=== PATIENT | male | born 1950 | race Caucasian/White ===

== ENCOUNTER 2017-07-12 09:24 | Inpatient (IN) | payer OTHER, MEDICARE ==
[2017-07-12] VITALS (23 sets, daily range): BP systolic 114–180; BP diastolic 77–113; PULSE 85–115; RESP 10–30; TEMP 97.9–98.7; O2SAT 55–98
[~2017-07-12] VITALS: Ht 185.4 cm; Wt 141.0 kg
[~2017-07-12 09:24] MED LIST: ATOR20TA42 PO; DILT60TA PO; ECASA PO; FURO1TAB93 PO; KCL20 PO; LISI20 PO
[2017-07-12] MEDS ORDERED: APIX5TAB PO (09:39)
[2017-07-12] MEDS ORDERED: CARV12.52 PO (09:39)
[2017-07-12] MEDS ORDERED: ATOR20TA15 PO (09:39)
[2017-07-12] MEDS ORDERED: POTA-163 PO (09:39)
[2017-07-12] MEDS ORDERED: FURO40TA PO (09:39)
[2017-07-12] MEDS ORDERED: AMLO5TAB2 PO (09:40)
[2017-07-12] MEDS ORDERED: FUROSEMIDE 40 MG/4 ML VIAL IV PUSH ONE (10:30)
[2017-07-12 10:44] LABS: AUTOMATED NEUTROPHIL # 6.2 TH/MM3 (1.8-7.7); BASOPHIL # 0.1 TH/MM3 (0-0.2); BASOPHIL % 0.6 % (0.0-2.0); EOSINOPHIL % 0.1 % (0.0-4.0); HEMATOCRIT 57.8 % (39.0-51.0); HEMOGLOBIN 18.3 GM/DL (13.0-17.0); LYMPH % 10.7 % (9.0-44.0); LYMPHOCYTE # 0.9 TH/MM3 (1.0-4.8); MEAN CORPUSCULAR HEMOGLOBIN 28.8 PG (27.0-34.0); MEAN CORPUSCULAR HGB CONC 31.6 % (32.0-36.0); MEAN PLATELET VOLUME 9.3 FL (7.0-11.0); MONO % 12.9 % (0.0-8.0); NEUT % 75.7 % (16.0-70.0); PLATELET COUNT 147 TH/MM3 (150-450); RED BLOOD COUNT 6.35 MIL/MM3 (4.50-5.90); RED CELL DISTRIBUTION WIDTH 20.7 % (11.6-17.2); WHITE BLOOD COUNT 8.2 TH/MM3 (4.0-11.0)
--- NOTE | 2017-07-12 10:58 | PD ---
HPI Chief Complaint: Edema Time Seen by Provider: 10:10 Travel History International Travel<30 days: No Contact w/Intl Traveler<30days: No Traveled to known affect area: No History of Present Illness HPI This patient complains of shortness of breath. He is chronically short of breath every single day. This is been going on for many months. He came in today out of frustration. He is not having chest pain or fever. He has chronic leg swelling. He reports diuretic use. He denies alcohol abuse. He is a smoker. No alleviating factors. No exacerbating factors. Symptoms severity is moderate PFSH Past Medical History Congestive Heart Failure: Yes Hypertension: Yes Tetanus Vaccination: > 5 Years Influenza Vaccination: Yes Past Surgical History Surgical History: No Previous Surgery Other Surgery: Yes (FACIAL TUMOR REMOVED) Social History Alcohol Use: Yes (occas) Tobacco Use: Yes (06/28 PPD) Substance Use: No Allergies-Medications (Allergen,Severity, Reaction): Coded Allergies: No Known Allergies (Verified Adverse Reaction, Unknown, 07/12/17) Reported Meds & Prescriptions Reported Meds & Active Scripts Active Reported Amlodipine (Amlodipine Besylate) 5 Mg Tab 5 Mg PO DAILY Furosemide 40 Mg Tab 40 Mg PO BID Carvedilol 12.5 Mg Tab 12.5 Mg PO BID Potassium Chloride ER (Potassium Chloride) 20 Meq Tab 20 Meq PO DAILY Atorvastatin (Atorvastatin Calcium) 20 Mg Tab 20 Mg PO HS Eliquis (Apixaban) 5 Mg Tab 5 Mg PO BID Review of Systems General / Constitutional: No: Fever Eyes: No: Visual changes HENT: No: Headaches Cardiovascular: Positive: Edema, No: Chest Pain or Discomfort Respiratory: Positive: Shortness of Breath Gastrointestinal: No: Abdominal Pain Genitourinary: No: Dysuria Musculoskeletal: Positive: Edema, No: Pain Skin: No Rash Neurologic: No: Weakness Psychiatric: No: Depression Endocrine: No: Polydipsia Hematologic/Lymphatic: No: Easy Bruising Physical Exam Narrative GENERAL: Well-nourished, well-developed patient who is short of breath . SKIN: Focused skin assessment reveals no rash and nodules. Skin is Warm and dry. HEAD: Atraumatic. Normocephalic. EYES: Pupils equal and round. No scleral icterus. No injection or drainage. ENT: No nasal bleeding or discharge. Mucous membranes pink and moist. NECK: Trachea midline. No JVD. CARDIOVASCULAR: Irregularly irregular rhythm. No murmur appreciated. RESPIRATORY: No accessory muscle use. Clear to auscultation. Breath sounds equal bilaterally. GASTROINTESTINAL: Abdomen soft, non-tender, nondistended. Hepatic and splenic margins not palpable. MUSCULOSKELETAL: No obvious deformities. No clubbing. No cyanosis. Symmetric pitting edema the feet ankles and lower legs up to the knee. He has hyperpigmentation stasis and thickening of skin suggesting chronicity. The right lower leg there is a open sore with some scant honey crusting drainage . NEUROLOGICAL: Awake and alert. No obvious cranial nerve deficits. Motor grossly within normal limits. Normal speech. PSYCHIATRIC: Appropriate mood and affect; insight and judgment normal. Data Data Last Documented VS Vital Signs Date Time Temp Pulse Resp B/P (MAP) Pulse Ox O2 Delivery O2 Flow Rate FiO2 07/12/17 14:04 87 16 180/113 (135) 97 BiPAP 07/12/17 13:50 50 07/12/17 13:40 8.00 07/12/17 09:26 98.7 Orders Orders Electrocardiogram (07/12/17 ) Iv Access Insert/Monitor (07/12/17 10:20) Complete Blood Count With Diff (07/12/17 10:20) Comprehensive Metabolic Panel (07/12/17 10:20) Troponin I (07/12/17 10:20) Ckmb (Isoenzyme) Profile (07/12/17 10:20) B-Type Natriuretic Peptide (07/12/17 10:20) Chest, Single Ap (07/12/17 ) Prothrombin Time / Inr (Pt) (07/12/17 10:20) Act Partial Throm Time (Ptt) (07/12/17 10:20) Towboat Operator / Telemetry SANNA.Q8H (07/12/17 10:20) Furosemide Inj (Lasix Inj) (07/12/17 10:30) Oxygen Administration (07/12/17 10:20) Albuterol-Ipratropium Neb (Duoneb Neb) (07/12/17 12:45) Albuterol-Ipratropium Neb (Duoneb Neb) (07/12/17 12:45) Arterial Blood Gas (Abg) (07/12/17 ) Resp Bipap / Cpap Non Invas Vt (07/12/17 ) Admit To Inpatient (07/12/17 ) Code Status (07/12/17 14:21) Vital Signs (Adult) SANNA.Q1H (07/12/17 14:21) Activity Bed Rest (07/12/17 14:21) Elevate Head Of Bed (07/12/17 14:21) Neuro Checks . ORDERED (07/12/17 14:21) Famotidine Inj (Pepcid Inj) (07/12/17 14:30) Albuterol-Ipratropium Neb (Duoneb Neb) (07/12/17 16:00) Albuterol-Ipratropium Neb (Duoneb Neb) (07/12/17 14:30) Complete Blood Count With Diff (07/13/17 04:00) Basic Metabolic Panel (Bmp) (07/13/17 04:00) Magnesium (Mg) (07/13/17 04:00) Phosphorus (Po4) (07/13/17 04:00) Towboat Operator / Telemetry SANNA.Q8H (07/12/17 14:21) Scd Bilateral/Knee High SANNA.BID (07/12/17 14:21) ^ Initiate Protocol (07/12/17 14:21) Instruction (07/12/17 14:21) [facility] Nursing Information (07/12/17 14:30) Chlorhexidine 2% Cloth (Chlorhexidine 2% (07/13/17 04:00) Chlorhexidine 2% Cloth (Chlorhexidine 2% (07/12/17 14:30) [facility]sa Pcr Surveillance (07/12/17 14:21) Docusate Sodium-Senna (Heavenly-Colace) (07/12/17 21:00) Magnesium Hydroxide Liq (Milk Of Magnesi (07/12/17 14:30) Sennosides (Senokot) (07/12/17 14:30) Bisacodyl Supp (Dulcolax Supp) (07/12/17 14:30) Methylprednisolone So Succ Inj (Solumedr (07/12/17 14:30) Lactulose Liq (Lactulose Liq) (07/12/17 14:30) Inpatient Certification (07/12/17 ) Methylprednisolone So Succ Inj (Solumedr (07/12/17 18:00) Admit Order (Ed Use Only) (07/12/17 14:25) Labs Laboratory Tests Test 07/12/17 10:15 07/12/17 10:45 07/12/17 11:45 07/12/17 13:30 White Blood Count 8.2 TH/MM3 Red Blood Count 6.35 MIL/MM3 Hemoglobin 18.3 GM/DL Hematocrit 57.8 % Mean Corpuscular Volume 91.0 FL Mean Corpuscular Hemoglobin 28.8 PG Mean Corpuscular Hemoglobin Concent 31.6 % Red Cell Distribution Width 20.7 % Platelet Count 147 TH/MM3 Mean Platelet Volume 9.3 FL Neutrophils (%) (Auto) 75.7 % Lymphocytes (%) (Auto) 10.7 % Monocytes (%) (Auto) 12.9 % Eosinophils (%) (Auto) 0.1 % Basophils (%) (Auto) 0.6 % Neutrophils # (Auto) 6.2 TH/MM3 Lymphocytes # (Auto) 0.9 TH/MM3 Monocytes # (Auto) 1.0 TH/MM3 Eosinophils # (Auto) 0.0 TH/MM3 Basophils # (Auto) 0.1 TH/MM3 CBC Comment DIFF FINAL Differential Comment Prothrombin Time 14.5 SEC Prothromb Time International Ratio 1.4 RATIO Activated Partial Thromboplast Time 28.5 SEC Blood Urea Nitrogen 26 MG/DL Creatinine 1.26 MG/DL Random Glucose 96 MG/DL Total Protein 6.9 GM/DL Albumin 3.1 GM/DL Calcium Level 8.6 MG/DL Alkaline Phosphatase 76 U/L Aspartate Amino Transf (AST/SGOT) 25 U/L Alanine Aminotransferase (ALT/SGPT) 25 U/L Total Bilirubin 3.1 MG/DL Sodium Level 137 MEQ/L Potassium Level 3.9 MEQ/L Chloride Level 96 MEQ/L Carbon Dioxide Level 35.7 MEQ/L Anion Gap 5 MEQ/L Estimat Glomerular Filtration Rate 57 ML/MIN Total Creatine Kinase 47 U/L Troponin I 0.08 NG/ML B-Type Natriuretic Peptide 332 PG/ML Blood Gas Puncture Site RT RADIAL Blood Gas Patient Temperature 98.6 Blood Gas HCO3 39 mmol/L Blood Gas Base Excess 12.1 mmol/L Blood Gas Oxygen Saturation 47 % Arterial Blood pH 7.30 Arterial Blood Partial Pressure CO2 81 mmHg Arterial Blood Partial Pressure O2 30 mmHG Arterial Blood Oxygen Content 12.3 Vol % Arterial Blood Carboxyhemoglobin 3.7 % Arterial Blood Methemoglobin 0.5 % Blood Gas Hemoglobin 18.7 G/DL Oxygen Delivery Device ROOM AIR Blood Gas Inspired Oxygen 21 % [facility] Medical Decision Making Medical Screen Exam Complete: Yes Emergency Medical Condition: Yes Medical Record Reviewed: Yes Differential Diagnosis CHF, pneumonia, COPD, bronchitis Narrative Course I have reviewed the patient's electronic medical record. IV placed I gave him 60 mg IV Lasix CBC is normal Metabolic profile shows increased CO2 CK is normal Troponin is 0.08 Bnp is 332 I reviewed his chest x-ray which does not show significant pulmonary edema or effusions I reviewed his EKG which shows A. fib at a rate of [address] elevation ABG is significantly abnormal. He is 58% on room air, profoundly hypoxemic On BiPAP he has sat of 100 Will need to have him blow off the CO2 on BiPAP Will need an ABG and an hour This may be partly due to COPD. He is congested and wheezy. I gave him multiple nebulizers and IV Solu-Medrol Patient has a hypoxemic respiratory failure, partly chronic. He does have a chronic respiratory acidosis on ABG I reviewed with order entry technician who will hospitalize Critical Care Narrative Aggregate critical care time was 40 minutes. Time to perform other separately billable procedures was not included in the critical care time. My time did not include minutes spent treating any other patients simultaneously or on activities that did not directly contribute to the patient's treatment. The services I provided to this patient were to treat and/or prevent clinically significant deterioration that could result in: Hypoxemic brain injury, cardiopulmonary arrest, cardiac arrhythmia I provided critical care services requiring my management, as noted below: Chart data review, documentation time, medication orders and management, vital sign assessments/reviewing monitor data, ordering and reviewing lab tests, ordering and interpreting/reviewing x-rays and diagnostic studies, care of the patient and discussion of the patient with the admitting physicians. Diagnosis Primary Impression: Acute hypoxemic respiratory failure Additional Impression: Cardiomyopathy Qualified Codes: I42.0 - Dilated cardiomyopathy Admitting Information Admitting Physician Requests: Parrish Jarquin MD Jul 12, 2017 10:58
--- NOTE | 2017-07-12 11:12 | RADRPT ---
EXAM DATE/TIME: 07/12/2017 10:34 [facility] COMPARISON: CHEST PA & LAT, February 10, 2016, 17:26. INDICATIONS : Short of breath. MEDICAL HISTORY : Hypertension. atrial fibrillation SURGICAL HISTORY : cardiac catherization ENCOUNTER: Initial ACUITY: 1 day PAIN SCORE: 0/10 LOCATION: Bilateral chest FINDINGS: A single view of the chest demonstrates the lungs to be symmetrically aerated without evidence of mas s, infiltrate or effusion. The cardiomediastinal contours reveal atherosclerotic changes of the aort a with left ventricular cardiomegaly.. Osseous structures are intact. CONCLUSION: No acute disease. Stable chest with compensated atherosclerotic cardiovascular disease left ventricu lar cardiomegaly. Danny Jaramillo MD on July 12, 2017 at 11:09 Board Certified Radiologist. This report was verified electronically.
[2017-07-12 11:19] LABS: INTERNATIONAL NORMALIZED RATIO 1.4 RATIO; PROTHROMBIN TIME - PATIENT 14.5 SEC (9.8-11.6)
[2017-07-12 12:13] LABS: ALBUMIN 3.1 GM/DL (3.4-5.0); BICARBONATE 35.7 MEQ/L (21.0-32.0); BLOOD UREA NITROGEN 26 MG/DL (7-18); CALCIUM 8.6 MG/DL (8.5-10.1); CHLORIDE 96 MEQ/L (98-107); CREATININE 1.26 MG/DL (0.60-1.30); GLOMERULAR FILTRATION RATE 57 ML/MIN (>89); GLUCOSE,RANDOM 96 MG/DL (74-106); SODIUM (NA) 137 MEQ/L (136-145)
[2017-07-12 12:14] LABS: ALT (GPT) 25 U/L (12-78); AST (GOT) 25 U/L (15-37)
[2017-07-12 12:18] LABS: ALKALINE PHOSPHATASE 76 U/L (45-117); TOTAL BILIRUBIN ADULT 3.1 MG/DL (0.2-1.0); TOTAL PROTEIN 6.9 GM/DL (6.4-8.2); TROPONIN I 0.08 NG/ML (0.02-0.05)
[2017-07-12] MEDS ORDERED: RESP: ALBUTEROL 2.5 MG/IPRATROPIUM 0.5 MG NEB (SCH) NEB ONE ×2 (12:45)
[2017-07-12] MEDS ORDERED: MAGNESIUM HYDROXIDE SUSP 30 ML CUP PO PRN (14:30)
[2017-07-12] MEDS ORDERED: BISACODYL 10 MG SUPP RECTAL PRN (14:30)
[2017-07-12] MEDS ORDERED: MISCELLANEOUS NURSING INFORMATION XX SCH (14:30)
[2017-07-12] MEDS ORDERED: LACTULOSE SYRUP 20 GM/30 ML CUP PO PRN (14:30)
[2017-07-12] MEDS ORDERED: methylPREDNISolone SOD SUCC 125 MG/2 ML VIAL IV PUSH ONE (14:30)
[2017-07-12] MEDS ORDERED: SENNOSIDES 8.6 MG TAB PO PRN (14:30)
[2017-07-12] MEDS ORDERED: CHLORHEXIDINE GLUCONATE 2 % 1 PACK (2 CLOTHS) TOP PRN (14:30)
[2017-07-12] MEDS: amLODIPine BESYLATE 5 MG TAB PO SCH (14:30)
[2017-07-12] MEDS ORDERED: RESP: ALBUTEROL 2.5 MG/IPRATROPIUM 0.5 MG NEB (PRN) INH (14:30)
[2017-07-12] MEDS: CARVEDILOL 12.5 MG TAB PO SCH ×2 (14:30→20:15)
[2017-07-12] MEDS: FAMOTIDINE 20 MG/2 ML VIAL IV PUSH SCH ×2 (14:45→20:16)
[2017-07-12] MEDS ORDERED: GLUCAGON 1 MG/ML VIAL OTHER PRN (15:30)
[2017-07-12] MEDS ORDERED: DEXTROSE 50% IN WATER 50 ML VIAL(D50) IV PUSH PRN (15:30)
[2017-07-12] MEDS: LEVOFLOXACIN 750 MG PREMIX INJ 150 ML IV SCH (16:00)
[2017-07-12] MEDS: RESP: ALBUTEROL 2.5 MG/IPRATROPIUM 0.5 MG NEB (SCH) INH ×3 (16:00→23:39)
[2017-07-12] MEDS: INSULIN NovoLIN REGULAR SUPPLEMENTAL SCALE SQ SCH ×3 (16:00→23:44)
--- NOTE | 2017-07-12 16:07 | MH ---
cc: JASBIR JAFFE M.D. DATE OF ADMISSION 07/12/2017 DATE OF 1950 HISTORY OF THE PRESENT ILLNESS The patient is a 67-year-old male with past medical history of morbid obesity, obstructive sleep apnea, chronic atrial fibrillation on Eliquis, cardiomyopathy with EF of 25-30%, active smoker who presented to [facility] ED with a 2 months history of progressive worsening shortness of breath associated with edema of lower extremities. He denies any associated symptoms of chest pain, cough, fever, chills or any constitutional symptoms. In addition he denies any nausea, vomiting or abdominal pain. On arrival to the ER he was in respiratory distress and was subsequently placed on BiPAP. He had initial ABG on room air which showed severe hypoxemic and hypercapnic respiratory failure. A repeat ABG on BiPap 15/8 with 50% FIO2 showed a pH of 7.26, CO2 89, pAO2 77, bicarb 38 and sats of 89%. When seen in the ED the patient is awake, responds to questions appropriately. IMAGING A chest x-ray showed no acute disease, cardiomegaly noted. LABORATORY DATA His laboratory data significant for mild elevation of BNP at 332 with a troponin of 0.08. In the ED he was given Lasix 60 mg IV push, bronchodilator treatment and Solu-Medrol 125 mg IV x1. PAST MEDICAL HISTORY Significant for: 1. Atrial fibrillation. 2. Cardiomyopathy. 3. Obstructive sleep apnea. 4. Morbid obesity. 5. Hypertension. PAST SURGICAL HISTORY Previous facial tumor removed. SOCIAL HISTORY Occasional drinker. Active smoker. He smokes 10 cigarettes every 2 days and has been a smoker for over 40 years. ALLERGIES NO KNOWN DRUG ALLERGIES. MEDICATIONS Reported medications: 1. Eliquis. 2. Atorvastatin. 3. Coreg. 4. Lasix. 5. Amlodipine. FAMILY HISTORY Noncontributory to current present illness. REVIEW OF SYSTEMS As per HPI. The rest of review of symptoms unremarkable. PHYSICAL EXAMINATION GENERAL: A 67-year-old male sitting up in bed in mild respiratory distress on a BiPap. VITAL SIGNS: Temperature 98.7, pulse of 93, blood pressure 125/83, saturation 91-95% on BiPap. HEENT: Atraumatic, normocephalic. Pupils equal, round, reactive to light and accommodation. Extraocular muscles intact. Conjunctiva pink. Nonicteric sclerae. Oral mucosa within normal. NECK: Supple. No JVD, adenopathy or thyromegaly. Trachea midline. CARDIOVASCULAR: Tachycardiac, irregularly irregular, normal S1-S2. No murmurs, rubs or gallops noted. LUNGS: Pulmonary exam bilateral equal air entry. Overall diminished. ABDOMEN: Soft, obese, nontender, no distension. Positive bowel sounds. EXTREMITIES: No cyanosis, clubbing, 2-3+ edema. NEUROLOGIC: No focal sensory deficit. LABORATORY DATA WBC 8.2, hemoglobin 18, hematocrit 57, platelet count 147. Sodium 137, potassium 3.9, chloride 96, CO2 35, BUN 26, creatinine 1.26, glucose 96, total bilirubin 3.1, AST of 25, ALT 25, alk phos 76. Troponin 0.08. BNP 332. Albumin 3.1. INR 1.4, PT 14.5, PTT 28.5. ABG on a BiPap showed a pH of 7.26, CO2 89, pAO2 77, bicarb 38, sats of 89%. The chest x-ray showed no acute disease. EKG showed atrial fibrillation with a rate of 97 beats per minute. Nonspecific T-wave abnormality. IMPRESSION 1. Acute hypoxemic and hypercapnic respiratory failure. 2. COPD exacerbation. 3. Obesity hypoventilation syndrome. 4. Obstructive sleep apnea / morbid obesity. 5. Active tobacco use. 6. Nonischemic cardiomyopathy with EF of 25-30%. 7. Chronic atrial fibrillation on Eliquis. 8. Hypertension. RECOMMENDATIONS 1. Monitor neurological status closely and avoid any sedatives. 2. We will continue with oxygen and maintain sats above 92%. 3. Bronchodilators in the form of DuoNeb q.4 plus q.2h. as needed for shortness of breath. We will continue with IV steroids in the form of Solu-Medrol 60 mg IV q.6h. 4. Continue with noninvasive positive pressure ventilation. Will repeat ABG. If there is any worsening in his respiratory acidosis or clinical condition we will proceed with intubation and mechanical ventilation. 5. Monitor heart rate and blood pressure closely and maintain MAP greater than 65 mmHg. Continue with antihypertensive meds. We will resume Coreg 12.5 mg b.i.d., Norvasc 5 mg daily, Lipitor 20 mg q.h.s. and Eliquis 5 mg p.o. b.i.d. 6. Monitor renal function Is and Os and electrolyte replacement as needed. Diurese as needed. He was given Lasix 60 mg IV push x1 in the ED. Chest x-ray in the ED showed no acute disease. 7. We will repeat echocardiogram to follow up on his LV function. Will consult Dr. Damon as he is known to the patient. Questionable need for ICD placement. 8. Keep n.p.o. for now until respiratory status improves and will place on Pepcid for GI prophylaxis. 9. Place on empiric antibiotics in the form of Levaquin for COPD exacerbation and monitor for signs of infections which include fever and WBC. 10. Monitor CBC. 11. Place on sliding scale insulin with Accu-Cheks for glycemic control as the patient will be on IV steroids. 12. GI prophylaxis with Pepcid and DVT prophylaxis with SCDs and we will resume Eliquis 5 mg b.i.d. 13. I will check a Doppler ultrasound lower extremity to rule out DVT. 14. Further recommendations will be based on hospital course. MD LANA Cruz/CHAVA /3:23 PM /3:35 PM
--- NOTE | 2017-07-12 16:22 | RADRPT ---
EXAM DATE/TIME: 07/12/2017 15:25 [facility] COMPARISON: No previous studies available for comparison. INDICATIONS : Shortness of breath. MEDICAL HISTORY : Congestive heart failure. Hypertension. Tobacco use. SURGICAL HISTORY : Facial tumor removed. ENCOUNTER: Initial ACUITY: 1 day PAIN SCORE: 3/10 LOCATION: Bilateral leg. TECHNIQUE: Venous ultrasound of the left and right leg was performed from the inguinal ligament to the proximal calf. Real-time, color Doppler and spectral tracing, compression and augmentation techniques were us ed. FINDINGS: RIGHT LEG: There is normal compressibility of the deep venous system from the inguinal region to the proximal ca lf. No echogenic clot is seen in the lumen of the common femoral, femoral, popliteal, and posterior tibial veins. There is a normal response of the venous system to proximal and distal augmentation an d respiration. LEFT LEG: There is normal compressibility of the deep venous system from the inguinal region to the proximal ca lf. No echogenic clot is seen in the lumen of the common femoral, femoral, popliteal, and posterior tibial veins. There is a normal response of the venous system to proximal and distal augmentation an d respiration. CONCLUSION: Normal examination. No evidence of DVT Danny Jaramillo MD on July 12, 2017 at 16:18 Board Certified Radiologist. This report was verified electronically.
--- NOTE | 2017-07-12 19:14 | EKG ---
Date Performed: 07/12/2017 Time Performed: 09:54:26 PTAGE: 67 years EKG: ATRIAL FIBRILLATION NONSPECIFIC T-WAVE ABNORMALITY When compared to previousn tracing, ther e has been some Variation in the nonspecific ST-T wave changes associated with The atrial fibrillatio n, but no other significant serial change. ABNORMAL ECG PREVIOUS TRACING : 02/10/2016 05.26 DOCTOR: Ashley Kang Interpretating Date/Time 07/12/2017 19:13:27
[2017-07-12] MEDS: methylPREDNISolone SOD SUCC 125 MG/2 ML VIAL IV PUSH SCH ×2 (19:39→23:44)
[2017-07-12] MEDS: ATORVASTATIN 20 MG TAB PO SCH (20:15)
[2017-07-12] MEDS: APIXABAN 5 MG TABLET PO SCH (20:15)
[2017-07-12] MEDS: DOCUSATE SODIUM 50 MG/SENNA 8.6 MG TAB PO SCH (20:16)
[2017-07-13] VITALS (18 sets, daily range): BP systolic 102–113; BP diastolic 57–77; PULSE 82–110; RESP 16–32; TEMP 97.2–97.9; O2SAT 83–95
[2017-07-13] MEDS: RESP: ALBUTEROL 2.5 MG/IPRATROPIUM 0.5 MG NEB (SCH) INH ×6 (03:52→23:18)
[2017-07-13] MEDS: INSULIN NovoLIN REGULAR SUPPLEMENTAL SCALE SQ SCH ×5 (04:00→19:56)
[2017-07-13] MEDS: CHLORHEXIDINE GLUCONATE 2 % 1 PACK (2 CLOTHS) TOP SCH (04:00)
[2017-07-13] MEDS: methylPREDNISolone SOD SUCC 125 MG/2 ML VIAL IV PUSH SCH ×3 (05:04→16:54)
[2017-07-13 06:13] LABS: AUTOMATED NEUTROPHIL # 4.6 TH/MM3 (1.8-7.7); BASOPHIL % 0.2 % (0.0-2.0); HEMATOCRIT 57.9 % (39.0-51.0); LYMPHOCYTE # 0.3 TH/MM3 (1.0-4.8); MEAN CELL VOLUME 91.1 FL (80.0-100.0); MEAN CORPUSCULAR HEMOGLOBIN 28.3 PG (27.0-34.0); MEAN CORPUSCULAR HGB CONC 31.1 % (32.0-36.0); MEAN PLATELET VOLUME 9.4 FL (7.0-11.0); MONO % 1.8 % (0.0-8.0); MONOCYTE # 0.1 TH/MM3 (0-0.9); PLATELET COUNT 115 TH/MM3 (150-450); RED BLOOD COUNT 6.36 MIL/MM3 (4.50-5.90); RED CELL DISTRIBUTION WIDTH 19.4 % (11.6-17.2)
[2017-07-13 06:24] LABS: BICARBONATE 37.4 MEQ/L (21.0-32.0); CALCIUM 8.6 MG/DL (8.5-10.1); CREATININE 1.26 MG/DL (0.60-1.30); MAGNESIUM 2.1 MG/DL (1.5-2.5); PHOSPHORUS 6.2 MG/DL (2.5-4.9)
[2017-07-13] MEDS: DOCUSATE SODIUM 50 MG/SENNA 8.6 MG TAB PO SCH ×2 (08:15→20:06)
[2017-07-13] MEDS: FAMOTIDINE 20 MG/2 ML VIAL IV PUSH SCH ×2 (08:15→20:01)
[2017-07-13] MEDS: APIXABAN 5 MG TABLET PO SCH ×2 (08:16→20:01)
[2017-07-13] MEDS: amLODIPine BESYLATE 5 MG TAB PO SCH (08:16)
[2017-07-13] MEDS: CARVEDILOL 12.5 MG TAB PO SCH ×2 (08:18→20:02)
--- NOTE | 2017-07-13 09:50 | HHI.CCPN ---
Subjective Remarks/Hospital Course The patient is a 67-year-old male with past medical history of morbid obesity, obstructive sleep apnea, chronic atrial fibrillation on Eliquis, cardiomyopathy with EF of 25-30%, active smoker who presented to [facility] ED with a 2 months history of progressive worsening shortness of breath associated with edema of lower extremities. He denies any associated symptoms of chest pain, cough, fever, chills or any constitutional symptoms. In addition he denies any nausea, vomiting or abdominal pain. On arrival to the ER he was in respiratory distress and was subsequently placed on BiPAP. He had initial ABG on room air which showed severe hypoxemic and hypercapnic respiratory failure. A repeat ABG on BiPap 08/02 with 50% FIO2 showed a pH of 7.26, CO2 89, pAO2 77, bicarb 38 and sats of 89%. When seen in the ED the patient is awake, responds to questions appropriately. Objective Vital Signs Date Time Temp Pulse Resp B/P (MAP) Pulse Ox O2 Delivery O2 Flow Rate FiO2 07/13/17 08:15 94 Partial Rebreather 15.00 07/13/17 08:02 60 07/13/17 06:00 86 07/13/17 04:00 97.2 22 106/65 (79) Intake and Output 07/13/17 07/13/17 07/14/17 08:00 16:00 00:00 Intake Total 120 ml Balance 120 ml Result Diagram: 07/13/17 0535 07/13/17 0535 Other Results Laboratory Tests Test 07/12/17 13:30 07/12/17 15:01 07/12/17 17:55 07/12/17 19:58 Blood Gas Puncture Site RT RADIAL RT RADIAL RT RADIAL RT RADIAL Blood Gas Patient Temperature 98.6 98.6 98.6 98.6 Blood Gas HCO3 39 mmol/L (22-26) 38 mmol/L (22-26) 40 mmol/L (22-26) 41 mmol/L (22-26) Blood Gas Base Excess 12.1 mmol/L (-2-2) 11.2 mmol/L (-2-2) 12.3 mmol/L (-2-2) 12.6 mmol/L (-2-2) Blood Gas Oxygen Saturation 47 % (90-100) 89 % (90-100) 91 % (90-100) 92 % ( 90-100) Arterial Blood pH 7.30 (7.380-7.420) 7.26 (7.380-7.420) 7.21 (7.380-7.420) 7.22 (7.380-7.420) Arterial Blood Partial Pressure CO2 81 mmHg (38-42) 89 mmHg (38-42) 105 mmHg (38-42) 103 mmHg (38-42) Arterial Blood Partial Pressure O2 30 mmHG (61-120) 77 mmHG (61-120) 103 mmHg (61-120) 107 mmHg (61-120) Arterial Blood Oxygen Content 12.3 Vol % (12.0-20.0) 23.1 Vol % (12.0-20.0) 23.2 Vol % (12.0-20.0) 23.7 Vol % (12.0-20.0) Arterial Blood Carboxyhemoglobin 3.7 % (0-4) 3.7 % (0-4) 3.4 % (0-4) 3.2 % (0-4) Arterial Blood Methemoglobin 0.5 % (0-2) 0.6 % (0-2) 1.1 % (0-2) 1.1 % (0-2) Blood Gas Hemoglobin 18.7 G/DL (12.0-16.0) 18.5 G/DL (12.0-16.0) 18.1 G/DL (12.0-16.0) 18.3 G/DL (12.0-16.0) Oxygen Delivery Device ROOM AIR BIPAP Partial Rebreather BIPAP Blood Gas Inspired Oxygen 21 % 50 % 100 % Blood Gas Ventilator Setting 15/+8 Blood Gas Liter Flow 15 L/M Test 07/12/17 22:42 07/13/17 04:17 Blood Gas Puncture Site RT RADIAL RT RADIAL Blood Gas Patient Temperature 98.6 98.6 Blood Gas HCO3 39 mmol/L (22-26) 37 mmol/L (22-26) Blood Gas Base Excess 11.7 mmol/L (-2-2) 9.7 mmol/L (-2-2) Blood Gas Oxygen Saturation 87 % (90-100) 92 % (90-100) Arterial Blood pH 7.23 (7.380-7.420) 7.27 (7.380-7.420) Arterial Blood Partial Pressure CO2 98 mmHg (38-42) 82 mmHg (38-42) Arterial Blood Partial Pressure O2 73 mmHg (61-120) 88 mmHg (61-120) Arterial Blood Oxygen Content 22.6 Vol % (12.0-20.0) 24.0 Vol % (12.0-20.0) Arterial Blood Carboxyhemoglobin 2.9 % (0-4) 2.4 % (0-4) Arterial Blood Methemoglobin 1.1 % (0-2) 1.1 % (0-2) Blood Gas Hemoglobin 18.5 G/DL (12.0-16.0) 18.6 G/DL (12.0-16.0) Oxygen Delivery Device BIPAP BIPAP Blood Gas Inspired Oxygen 60 % 100 % Imaging Last Impressions Lower Extremity Ultrasound 07/12/17 0000 Signed Impressions: Service Date/Time: Wednesday, July 12, 2017 15:25 - CONCLUSION: Normal examination. No evidence of DVT Danny Jaramillo MD Chest X-Ray 07/12/17 0000 Signed Impressions: Service Date/Time: Wednesday, July 12, 2017 10:34 - CONCLUSION: No acute disease. Stable chest with compensated atherosclerotic cardiovascular disease left ventricular cardiomegaly. Danny Jaramillo MD Objective Remarks GENERAL: A 67-year-old male sitting up in bed in mild respiratory distress on a NRBM. HEENT: Atraumatic, normocephalic. Pupils equal, round, reactive to light and accommodation. Extraocular muscles intact. Conjunctiva pink. Nonicteric sclerae. Oral mucosa within normal. NECK: Supple. No JVD, adenopathy or thyromegaly. Trachea midline. CARDIOVASCULAR: Tachycardiac, irregularly irregular, normal S1-S2. No murmurs, rubs or gallops noted. LUNGS: Pulmonary exam bilateral equal air entry. Overall diminished. ABDOMEN: Soft, obese, nontender, no distension. Positive bowel sounds. EXTREMITIES: No cyanosis, clubbing, 2-3+ edema. NEUROLOGIC: No focal sensory deficit. A/P Assessment and Plan IMPRESSION 1. Acute hypoxemic and hypercapnic respiratory failure. 2. COPD exacerbation. 3. Obesity hypoventilation syndrome. 4. Obstructive sleep apnea / morbid obesity. 5. Active tobacco use. 6. Nonischemic cardiomyopathy with EF of 25-30%. 7. Chronic atrial fibrillation on Eliquis. 8. Hypertension. RECOMMENDATIONS 1. Monitor neurological status closely and avoid any sedatives. 2. We will continue with oxygen and maintain sats above 92%. 3. Bronchodilators in the form of DuoNeb q.4 plus q.2h. as needed for shortness of breath. We will continue with IV steroids in the form of Solu-Medrol 60 mg IV q.6h. 4. On BiPAP overnight. Refusing BiPAP this morning and was placed on nonrebreather facemask. If there is any worsening in his respiratory acidosis or clinical condition we will proceed with intubation and mechanical ventilation. 5. Monitor heart rate and blood pressure closely and maintain MAP greater than 65 mmHg. Continue with antihypertensive meds. We will resume Coreg 12.5 mg b.i.d., Norvasc 5 mg daily, Lipitor 20 mg q.h.s. and Eliquis 5 mg p.o. b.i.d. 6. Monitor renal function Is and Os and electrolyte replacement as needed. Diurese as needed. He was given Lasix 60 mg IV push x1 in the ED. Chest x-ray in the ED showed no acute disease. 7. Follow-up echocardiogram to assess LV function. Consulted Dr. Damon as he is known to the patient. Questionable need for ICD placement. 8. Ordered by mouth diet, on Pepcid for GI prophylaxis. 9. Continue empiric antibiotics in the form of Levaquin for COPD exacerbation and monitor for signs of infections which include fever and WBC. 10. Monitor CBC. 11. sliding scale insulin with Accu-Cheks for glycemic control as the patient will be on IV steroids. 12. GI prophylaxis with Pepcid and DVT prophylaxis with SCDs, continue Eliquis 5 mg b.i.d. 13. Follow-up Doppler ultrasound lower extremity to rule out DVT. 14. Further recommendations will be based on hospital course. Luis Fernando Albert MD Jul 13, 2017 09:50
[2017-07-13] MEDS ORDERED: PNEUMOCOCCAL POLYVALENT INJ 25 MCG/0.5 ML SYR IM ONE (10:00)
[2017-07-13] MEDS ORDERED: FUROSEMIDE 40 MG TAB PO SCH (11:30)
--- NOTE | 2017-07-13 14:23 | ECHRPT ---
Indication: CHF CONCLUSIONS Normal left ventricular size. Wall thickness is normal. The left ventricular systolic function is moderately reduced with an estimated ejection fraction in the range of 40-45%. The right ventricle is moderately dilated. The right ventricular systoilc function is moderately decreased. The right atrial size is pzefujfh-kk-trerbozu dilated. No atrial level shunt is demonstrated by color flow Doppler interrogation. Trace mitral valve regurgitation. There is mild to moderate tricuspid valve regurgitation. The estimated pulmonary arterial pressure is 66 mmHg. BP: 180 / 113 HR: 87 Rhythm: Sinus MEASUREMENTS (Male / Female) Normal Values Technical Quality:Fair 2D ECHO LV Diastolic Diameter PLAX 4.8 cm 4.2 - 5.9 / 3.9 - 5.3 cm LV Systolic Diameter PLAX 4.0 cm IVS Diastolic Thickness 0.8 cm 0.6 - 1.0 / 0.6 - 0.9 cm LVPW Diastolic Thickness 0.8 cm 0.6 - 1.0 / 0.6 - 0.9 cm LV Relative Wall Thickness 0.3 RV Internal Dim ED PLAX 4.5 cm LVOT Diameter 2.5 cm Aortic Root Diameter 3.7 cm LA Systolic Diameter LX 4.4 cm 3.0 - 4.0 / 2.7 - 3.8 cm M-MODE AV Cusp Separation MM 2.1 cm DOPPLER AV Peak Velocity 137.0 cm/s AV Peak Gradient 7.5 mmHg AV Mean Gradient 4.0 mmHg AV Velocity Time Integral 19.9 cm LVOT Peak Velocity 68.4 cm/s LVOT Peak Gradient 1.9 mmHg LVOT Velocity Time Integral 11.4 cm AV Area Cont Eq vti 2.8 cm AV Area Cont Eq pk 2.5 cm Mitral E Point Velocity 102.6 cm/s LV E' Lateral Velocity 16.1 cm/s Mitral E to LV E' Lateral Ratio 6.4 LV E' Septal Velocity 10.6 cm/s Mitral E to LV E' Septal Ratio 9.7 TR Peak Velocity 374.0 cm/s TR Peak Gradient 56.0 mmHg Right Atrial Pressure 10.0 mmHg Pulmonary Artery Systolic Pressu 66.0 mmHg Right Ventricular Systolic Press 66.0 mmHg PV Peak Velocity 68.5 cm/s PV Peak Gradient 1.9 mmHg FINDINGS LEFT VENTRICLE Normal left ventricular size. Wall thickness is normal. The left ventricular systolic function is moderately reduced with an estimated ejection fraction in the range of 40-45%. RIGHT VENTRICLE The right ventricle is moderately dilated. The right ventricular systoilc function is moderately decreased. LEFT ATRIUM The left atrial size is normal. RIGHT ATRIUM The right atrial size is kkbocqkp-dp-yldkeehe dilated. ATRIAL SEPTUM No atrial level shunt is demonstrated by color flow Doppler interrogation. AORTA The aortic root and proximal ascending aorta are normal in size on limited imaging. MITRAL VALVE Trace mitral valve regurgitation. AORTIC VALVE Trileaflet aortic valve. No aortic valve stenosis or regurgitation. TRICUSPID VALVE There is mild to moderate tricuspid valve regurgitation. The estimated pulmonary arterial pressure is 66 mmHg. PULMONARY VALVE No pulmonary valve regurgitation or stenosis. VESSELS The inferior vena cava is normal in size. PERICARDIUM No pericardial effusion. Bayron Hewitt MD, FACC, [facility] [place] (Electronically Signed) Final Date:13 July 2017 14:21
--- NOTE | 2017-07-13 15:03 | MB ---
cc: RENZO BRYANT M.D. DATE OF CONSULTATION 07/13/2017 REASON FOR CONSULTATION Congestive heart failure, history of severe nonischemic cardiomyopathy. HISTORY OF PRESENT ILLNESS The patient is a 67-year-old white male, previously followed by Dr. Tomas Ha, with a history of sleep apnea, severe nonischemic cardiomyopathy, chronic atrial fibrillation, hypertension, morbid obesity, who presented to the hospital with increasing shortness of breath and pedal edema. The patient states he is chronically dyspneic with minimal activity but the shortness of breath has been somewhat worse recently. He also has chronic pedal edema but this also has worsened recently. He reports compliance with his medications and a bz-vrjsj-gnqx diet. He denies chest pain, dizziness, syncope, near-syncope, palpitations, paroxysmal nocturnal dyspnea, cough, wheezing, fevers, hemoptysis. Since coming into hospital his dyspnea has improved. PAST MEDICAL HISTORY 1. Chronic atrial fibrillation. 2. Sleep apnea 3. Morbid obesity. 4. Hypertension. 5. Severe nonischemic cardiomyopathy with ejection fraction of 25%. He had a heart catheterization 02/10/2016 showing minimal right coronary artery disease and ejection fraction of 25%. MEDICATIONS His cardiac medications at home: 1. Amlodipine 5 mg q. day. 2. Furosemide 40 mg b.i.d. 3. Carvedilol 12.5 mg b.i.d. 4. Potassium chloride 20 mEq q. day. 5. Atorvastatin 20 mg q.h.s. 6. Eliquis 5 mg b.i.d. ALLERGIES No known drug allergies. PAST SURGICAL HISTORY None. FAMILY HISTORY Noncontributory. SOCIAL HISTORY The patient used to smoke two packs of cigarettes per day. He now smokes 10 cigarettes a day. He denies alcohol abuse. REVIEW OF SYSTEMS As in the history of present illness otherwise negative or noncontributory. He also denies headache, abdominal pain, melena, dyspepsia, bright red blood per rectum. PHYSICAL EXAMINATION VITAL SIGNS: On physical examination his blood pressure is 105/68 with a pulse of 92, respirations 25. GENERAL: In general he is a well-developed, well-nourished white male in no acute distress. HEENT/NECK: Jugular venous pressure is normal. Carotid pulses are 2+ bilaterally and without bruits. CHEST: Examination of the chest reveals clear lung nichols. CARDIAC: On cardiac examination he has an irregularly irregular rate and rhythm without S3 or murmur. ABDOMEN: On abdominal examination he has a soft, obese, nontender abdomen. Bowel sounds are present. There is no definite hepatosplenomegaly. EXTREMITIES: Examination of the extremities reveals no clubbing or cyanosis. There is 1+ pretibial edema bilaterally, right greater than left, with chronic venous stasis changes. EKG EKG shows atrial fibrillation, nonspecific T-wave abnormality. IMAGING Chest x-ray shows no acute disease. LABORATORY Laboratory data includes WBC 5.0, hemoglobin 18.0, platelets 115, potassium 3.9, BUN 27, creatinine 1.26, troponin 0.08, CK 47. IMPRESSION Increased shortness of breath, increased pedal edema in this 67-year-old white male with a history of severe nonischemic cardiomyopathy, hypertension, sleep apnea, chronic atrial fibrillation, morbid obesity. I suspect overall that his increased dyspnea is more pulmonary in origin. He continues to smoke cigarettes. His chest x-ray apparently shows no evidence for pulmonary edema. I also suspect that his pedal edema is more due to chronic venous insufficiency, possibly exacerbated by amlodipine. Echocardiogram is pending although the patient states he had a recent echocardiogram in Dr. Tomas Ha's office showing no significant change from two years ago. Overall there is no evidence for acute coronary syndrome. Cardiac catheterization a year and a half ago apparently showed minimal disease. The patient does report compliance with his medications and a ii-vxprc-[id number] diet. RECOMMENDATIONS 1. Would stop amlodipine in favor of an NOBLE inhibitor or Entresto. 2. Continue apixaban given his high risk of thromboembolic phenomena. 3. Await his 2-D echo. 4. If his ejection fraction is still less than 35% will discuss AICD implantation with him. MD CHERYL Tomas/BRANDIE /2:21 PM /2:41 PM RHONDA
[2017-07-13] MEDS: LEVOFLOXACIN 750 MG PREMIX INJ 150 ML IV SCH (16:44)
[2017-07-13] MEDS: FUROSEMIDE 40 MG/4 ML VIAL IV PUSH SCH (16:53)
[2017-07-13] MEDS: ATORVASTATIN 20 MG TAB PO SCH (20:01)
[2017-07-13] MEDS: SACUBITRIL/VALSARTAN 24 MG-26 MG TAB PO SCH (20:01)
[2017-07-14] VITALS (14 sets, daily range): BP systolic 97–114; BP diastolic 59–77; PULSE 87–121; RESP 16–57; TEMP 97.6–98.6; O2SAT 81–93
[2017-07-14] MEDS: methylPREDNISolone SOD SUCC 125 MG/2 ML VIAL IV PUSH SCH ×5 (02:24→23:46)
[2017-07-14] MEDS: RESP: ALBUTEROL 2.5 MG/IPRATROPIUM 0.5 MG NEB (SCH) INH ×6 (03:23→23:18)
[2017-07-14] MEDS: INSULIN NovoLIN REGULAR SUPPLEMENTAL SCALE SQ SCH ×7 (04:00→23:47)
[2017-07-14] MEDS: CHLORHEXIDINE GLUCONATE 2 % 1 PACK (2 CLOTHS) TOP SCH (04:00)
--- NOTE | 2017-07-14 04:37 | RADRPT ---
EXAM DATE/TIME: 07/14/2017 02:58 [facility] COMPARISON: CHEST SINGLE AP, July 12, 2017, 10:34. INDICATIONS : Shortness of breath, possible pulmonary disease. MEDICAL HISTORY : Hypertension. A-Fib SURGICAL HISTORY : Cardiac cath ENCOUNTER: Subsequent ACUITY: 3 days PAIN SCORE: 0/10 LOCATION: Bilateral chest FINDINGS: The heart size is enlarged. There is increased density at the bases bilaterally. There is some promin ence of the central pulmonary vessels. There is blunting of the left costophrenic angle. CONCLUSION: 1. Cardiomegaly with prominence of the central vessels concerning for pulmonary venous hypertension. 2. Bibasilar areas of mild consolidation or atelectasis. 3. Blunting of the left cusp and which may represent a mild left effusion. Tomas Lion MD on July 14, 2017 at 4:33 Board Certified Radiologist. This report was verified electronically.
--- NOTE | 2017-07-14 05:19 | MB ---
cc: MARCELINO RAMIREZ MD DATE OF CONSULTATION 07/13/2017 REASON FOR CONSULTATION COPD exacerbation. HISTORY OF PRESENT ILLNESS The patient is a 67-year-old gentleman who is known to have history of morbid obesity, obstructive sleep apnea, chronic atrial fibrillation and COPD. He does have an ejection fraction of 25-30%. The patient came in with cause of shortness of breath with wheezing and coughing. The patient was found to have a COPD exacerbation and needed to be on a BiPAP. Right now he is doing much better. He is off the BiPAP. He is on 50% FIO2 right now. He reports that this is the third time it happened to him in the past three years. He does not follow up with a analytical clerk as an outpatient. PAST MEDICAL HISTORY Reviewed. Positive for - 1. History of atrial fibrillation. 2. Cardiomyopathy. 3. Obstructive sleep apnea. 4. Morbid obesity. 5. Hypertension. 6. COPD. SOCIAL HISTORY Smoker. Continues to smoke 10 cigarettes every two days. ALLERGIES None to medications. MEDICATIONS Reviewed in detail. REVIEW OF SYSTEMS As mentioned in the HPI. PHYSICAL EXAMINATION VITAL SIGNS: Temperature 97.3, pulse of 99, respiratory rate 25, blood pressure is 120/75. HEENT: Atraumatic, normocephalic. NECK: Trachea midline. LUNGS: Decreased breath sounds bilaterally with expiratory wheezing. HEART: S1, S2. ABDOMEN: Soft, obese. EXTREMITIES: Trace edema. No cyanosis. NEUROLOGIC: Alert, oriented x 3. Moves all extremities. IMAGING STUDIES Chest x-ray that did show no acute disease. LABORATORY DATA Labs were reviewed. WBCs 5, hemoglobin is 18, hematocrit 37.9, platelets 115. ASSESSMENT AND PLAN Acute COPD exacerbation. Hypercapnic respiratory failure secondary to COPD exacerbation. Congestive heart failure. Obstructive sleep apnea. Obesity. Atrial fibrillation. Overall he is improving. I would like to continue the current plan of care. I do recommend the addition of maintenance inhaler like Advair 250/50 one puff b.i.d. as well as Spiriva hand-held inhaler one puff once daily if it is available in the hospital. I would like him to be on maintenance therapy to see if we can prevent exacerbation. Definitely he needs to continue to follow up closely with a food products sales representative. He needs to continue to use his CPAP therapy for his sleep apnea and he needs to follow up with a analytical clerk upon discharge to see if he can prevent these recurrent exacerbations. I explained this plan to the patient in detail. MD TARAH Tyson/ANTIONE /5:21 PM /5:01 AM
[2017-07-14 06:48] LABS: BICARBONATE 40.6 MEQ/L (21.0-32.0); CALCIUM 8.3 MG/DL (8.5-10.1); CREATININE 1.08 MG/DL (0.60-1.30)
--- NOTE | 2017-07-14 08:06 | PD.CARD.PN ---
Subjective Subjective Remarks Dyspnea better. No CP, dizziness, palpitations, PND. Objective Medications Item Value Date Time Sacubitril/ 1 tab 07/13/17 2100 Valsartan BID/PO 07/13/172000 (Entresto 24-26 Mg) Furosemide 40 mg 07/13/17 1800 (Lasix Inj) BID@09,18/IV PUSH 07/13/17 1653 Apixaban 5 mg 07/12/17 2100 (Eliquis) BID/PO 07/13/172000 Atorvastatin 20 mg 07/12/17 2100 Calcium HS/PO 07/13/172000 (Lipitor) Carvedilol 12.5 mg 07/12/17 1430 (Coreg) BID/PO 07/13/172001 Current Medications Medications (Trade) Dose Ordered Sig/Prakash Route Start Time Stop Time Status Last Admin (Pepcid Inj) 20 mg Q12HR IV PUSH 07/12/17 14:45 07/13/17 20:01 (Duoneb Neb) 1 ampule Q4HR NEB INH 07/12/17 16:00 07/14/17 07:40 (Duoneb Neb) 1 ampule Q2HR NEB PRN INH 07/12/17 14:30 Miscellaneous Information 1 Q361D XX 07/12/17 14:30 (Chlorhexidine 2% Cloth) 3 pack Taper DAILY@04 TOP 07/13/17 04:00 07/09/18 03:59 07/14/17 04:00 (Chlorhexidine 2% Cloth) 3 pack UNSCH PRN TOP 07/12/17 14:30 (Heavenly-Colace) 1 tab BID PO 07/12/17 21:00 07/13/17 08:15 (Milk Of Magnesia Liq) 30 ml Q12H PRN PO 07/12/17 14:30 (Senokot) 17.2 mg Q12H PRN PO 07/12/17 14:30 (Dulcolax Supp) 10 mg DAILY PRN RECTAL 07/12/17 14:30 (Lactulose Liq) 30 ml DAILY PRN PO 07/12/17 14:30 (SoluMEDROL INJ) 60 mg Q6HR IV PUSH 07/12/17 18:00 07/14/17 05:45 (Eliquis) 5 mg BID PO 07/12/17 21:00 07/13/17 20:01 (Lipitor) 20 mg HS PO 07/12/17 21:00 07/13/17 20:01 (Coreg) 12.5 mg BID PO 07/12/17 14:30 07/13/17 20:02 Levofloxacin/ Dextrose 150 ml @ 100 mls/hr Q24H IV 07/12/17 16:00 07/18/17 15:59 07/13/17 16:44 (D50w (Vial) Inj) 50 ml UNSCH PRN IV PUSH 07/12/17 15:30 (Glucagon Inj) 1 mg UNSCH PRN OTHER 07/12/17 15:30 (NovoLIN R SUPPLEMENTAL SCALE) 1 Q4HR SQ 07/12/17 16:00 07/13/17 19:56 (Entresto 24-26 Mg) 1 tab BID PO 07/13/17 21:00 07/13/17 20:01 (Lasix Inj) 40 mg BID@09,18 IV PUSH 07/13/17 18:00 07/13/17 16:53 Vital Signs / I&O Vital Signs Date Time Temp Pulse Resp B/P (MAP) Pulse Ox O2 Delivery O2 Flow Rate FiO2 07/14/17 07:41 92 Partial Rebreather 15.00 07/14/17 06:00 91 07/14/17 04:00 87 07/14/17 04:00 97.6 87 16 97/63 (74) 90 07/14/17 02:00 89 07/14/17 00:00 97 07/14/17 00:00 97.8 97 17 98/59 (72) 93 07/13/17 22:00 82 07/13/17 20:00 97.9 92 16 107/65 (79) 91 07/13/17 20:00 92 07/13/17 19:29 93 Partial Rebreather 15.00 07/13/17 18:00 92 07/13/17 16:00 97.6 92 18 102/57 (72) 95 07/13/17 16:00 92 07/13/17 14:44 93 Partial Rebreather 15.00 07/13/17 14:00 99 07/13/17 12:00 92 07/13/17 12:00 97.3 92 25 90 07/13/17 10:00 90 07/13/17 08:15 94 Partial Rebreather 15.00 07/13/17 08:02 92 60 I/O 07/13/17 07/13/17 07/13/17 07/14/17 07/14/17 07/14/17 07:00 15:00 23:00 07:00 15:00 23:00 Intake Total 120 ml 800 ml 240 ml Output Total 425 ml 750 ml 1200 ml Balance 120 ml -425 ml 50 ml -960 ml Intake Oral 120 ml 800 ml 240 ml Output Urine Total 425 ml 750 ml 1200 ml # Voids 5 1 # Bowel Movements 0 0 Physical Exam GENERAL: Well developed, well nourished. No acute distress. HEENT: Jugular venous pressure is normal. CHEST: Lungs clear to auscultation bilaterally. Unlabored respiratory effort. CARDIAC: Irregular rate and rhythm without S3 or murmur. ABDOMEN: Soft, nontender, no hepatosplenomegaly. Bowel sounds present. EXTREMITIES: No clubbing, cyanosis. Chronic venous stasis changes. 1+ pretibial edema. Laboratory Laboratory Tests Test 07/14/17 04:41 Blood Urea Nitrogen 31 MG/DL Creatinine 1.08 MG/DL Random Glucose 120 MG/DL Calcium Level 8.3 MG/DL Sodium Level 138 MEQ/L Potassium Level 4.2 MEQ/L Chloride Level 94 MEQ/L Carbon Dioxide Level 40.6 MEQ/L Anion Gap 3 MEQ/L Estimat Glomerular Filtration Rate 69 ML/MIN Imaging Last 24 hours Impressions Chest X-Ray 07/14/17 0600 Signed Impressions: Service Date/Time: June 02:58 - CONCLUSION: 1. Cardiomegaly with prominence of the central vessels concerning for pulmonary venous hypertension. 2. Bibasilar areas of mild consolidation or atelectasis. 3. Blunting of the left cusp and which may represent a mild left effusion. Tomas Lion MD Assessment and Plan Problem List: (1) Non-ischemic cardiomyopathy ICD Codes: I42.8 - Other cardiomyopathies Status: Chronic Plan: Continues to improve clinically. Very good diuresis since admission. Suspect most of respiratory insufficiency recently due to COPD. EF apparently much better 40-45% on echo this admission compared to 25% 2016. Suspect pedal edema mostly related to chronic deep venous insufficiency, worsened by amlodipine use. REC continue carvedilol, Entresto continue IV furosemide one more day OK to transfer out of ICU from cardiac standpoint keep off amlodipine will review echo (2) Chronic atrial fibrillation ICD Codes: I48.2 - Chronic atrial fibrillation Status: Chronic Plan: Stable chronic atrial fibrillation. HR's OK. Continue apixaban. (3) Hypertension ICD Codes: I10 - Essential (primary) hypertension Status: Chronic Plan: Stable. Normotensive. Code Status full code Discussed Condition With patient Problem Qualifiers (1) Hypertension: Qualified Codes: I10 - Essential (primary) hypertension Jonel Adkins MD Jul 14, 2017 08:06
[2017-07-14] MEDS: FUROSEMIDE 40 MG/4 ML VIAL IV PUSH SCH ×2 (09:07→16:58)
[2017-07-14] MEDS: CARVEDILOL 12.5 MG TAB PO SCH ×2 (09:08→20:18)
[2017-07-14] MEDS: APIXABAN 5 MG TABLET PO SCH ×2 (09:08→20:19)
[2017-07-14] MEDS: DOCUSATE SODIUM 50 MG/SENNA 8.6 MG TAB PO SCH ×2 (09:08→20:19)
[2017-07-14] MEDS: SACUBITRIL/VALSARTAN 24 MG-26 MG TAB PO SCH ×2 (09:08→20:19)
[2017-07-14] MEDS: FAMOTIDINE 20 MG/2 ML VIAL IV PUSH SCH ×2 (09:28→20:19)
--- NOTE | 2017-07-14 10:31 | HHI.CCPN ---
Subjective Remarks/Hospital Course The patient is a 67-year-old male with past medical history of morbid obesity, obstructive sleep apnea, chronic atrial fibrillation on Eliquis, cardiomyopathy with EF of 25-30%, active smoker who presented to [facility] ED with a 2 months history of progressive worsening shortness of breath associated with edema of lower extremities. He denies any associated symptoms of chest pain, cough, fever, chills or any constitutional symptoms. In addition he denies any nausea, vomiting or abdominal pain. On arrival to the ER he was in respiratory distress and was subsequently placed on BiPAP. He had initial ABG on room air which showed severe hypoxemic and hypercapnic respiratory failure. A repeat ABG on BiPap 08/02 with 50% FIO2 showed a pH of 7.26, CO2 89, pAO2 77, bicarb 38 and sats of 89%. When seen in the ED the patient is awake, responds to questions appropriately. 07/14 Patient is on partial rebreather with good sats. Awake and alert. Objective Vital Signs Date Time Temp Pulse Resp B/P (MAP) Pulse Ox O2 Delivery O2 Flow Rate FiO2 07/14/17 07:41 92 Partial Rebreather 15.00 07/14/17 06:00 91 07/14/17 04:00 97.6 16 97/63 (74) 07/13/17 08:02 60 Intake and Output 07/14/17 07/14/17 07/15/17 08:00 16:00 00:00 Intake Total 240 ml Output Total 1200 ml Balance -960 ml Result Diagram: 07/13/17 0535 07/14/17 0441 Other Results Laboratory Tests Test 07/14/17 04:41 07/14/17 08:40 Blood Urea Nitrogen 31 MG/DL Creatinine 1.08 MG/DL Random Glucose 120 MG/DL Calcium Level 8.3 MG/DL Sodium Level 138 MEQ/L Potassium Level 4.2 MEQ/L Chloride Level 94 MEQ/L Carbon Dioxide Level 40.6 MEQ/L Anion Gap 3 MEQ/L Estimat Glomerular Filtration Rate 69 ML/MIN Blood Gas Puncture Site RT RADIAL Blood Gas Patient Temperature 98.6 Blood Gas HCO3 40 mmol/L Blood Gas Base Excess 13.0 mmol/L Blood Gas Oxygen Saturation 89 % Arterial Blood pH 7.30 Arterial Blood Partial Pressure CO2 84 mmHg Arterial Blood Partial Pressure O2 66 mmHg Arterial Blood Oxygen Content 22.1 Vol % Arterial Blood Carboxyhemoglobin 1.5 % Arterial Blood Methemoglobin 0.9 % Blood Gas Hemoglobin 17.7 G/DL Oxygen Delivery Device PNRBR Blood Gas Liter Flow 15 L/M Imaging Last Impressions Chest X-Ray 07/14/17 0600 Signed Impressions: Service Date/Time: June 02:58 - CONCLUSION: 1. Cardiomegaly with prominence of the central vessels concerning for pulmonary venous hypertension. 2. Bibasilar areas of mild consolidation or atelectasis. 3. Blunting of the left cusp and which may represent a mild left effusion. Tomas Lion MD Lower Extremity Ultrasound 07/12/17 0000 Signed Impressions: Service Date/Time: Wednesday, July 12, 2017 15:25 - CONCLUSION: Normal examination. No evidence of DVT Danny Jaramillo MD Objective Remarks GENERAL: A 67-year-old male sitting up in bed in mild respiratory distress on a NRBM. HEENT: Atraumatic, normocephalic. Pupils equal, round, reactive to light and accommodation. Extraocular muscles intact. Conjunctiva pink. Nonicteric sclerae. Oral mucosa within normal. NECK: Supple. No JVD, adenopathy or thyromegaly. Trachea midline. CARDIOVASCULAR: Tachycardiac, irregularly irregular, normal S1-S2. No murmurs, rubs or gallops noted. LUNGS: Pulmonary exam bilateral equal air entry. Overall diminished. ABDOMEN: Soft, obese, nontender, no distension. Positive bowel sounds. EXTREMITIES: No cyanosis, clubbing, 2-3+ edema. NEUROLOGIC: No focal sensory deficit. A/P Assessment and Plan IMPRESSION 1. Acute hypoxemic and hypercapnic respiratory failure. 2. COPD exacerbation. 3. Obesity hypoventilation syndrome. 4. Obstructive sleep apnea / morbid obesity. 5. Active tobacco use. 6. Nonischemic cardiomyopathy with EF of 25-30%. 7. Chronic atrial fibrillation on Eliquis. 8. Hypertension. Plan Monitor neuro status and avoid any sedatives. Pulm: Continue with oxygen and maintain sats above 92%. Bronchodilators,Solu-Medrol 60 mg IV q.6h. ABG this morning showed improvements in his resp acidosis. BIPAP PRN and nocturnally qhs CV: Monitor HR and BP and maintain MAP >65 mmHg. On Coreg 12.5 mg b.i.d., Entresto, Lipitor 20 mg q.h.s. and Eliquis 5 mg p.o. b.i.d. Echo showed EF 40-45%, mod pulm HTN, PAP 66mmHg Cards is following- Dr. Adkins. On Lasix 40mg BID : Monitor renal function Is and Os and electrolyte replacement as needed. GI: On PO diet, Pepcid for GI prophylaxis. ID: Continue Levaquin for COPD exacerbation and monitor for signs of infections ( fever and WBC). Heme: Monitor CBC. Endo: SSI with Accu-Cheks for glycemic control GI prophylaxis with Pepcid and DVT prophylaxis with SCDs, Eliquis 5 mg b.i.d. Doppler US LE negative for DVT Level 2 Bryan Mayberry MD Jul 14, 2017 10:31
[2017-07-14 11:31] LABS: HEMATOCRIT 54.7 % (39.0-51.0); HEMOGLOBIN 17.5 GM/DL (13.0-17.0); MEAN CELL VOLUME 90.8 FL (80.0-100.0); MEAN CORPUSCULAR HEMOGLOBIN 29.1 PG (27.0-34.0); PLATELET COUNT 138 TH/MM3 (150-450); RED BLOOD COUNT 6.02 MIL/MM3 (4.50-5.90); RED CELL DISTRIBUTION WIDTH 19.8 % (11.6-17.2); WHITE BLOOD COUNT 14.2 TH/MM3 (4.0-11.0)
[2017-07-14] MEDS: LEVOFLOXACIN 750 MG PREMIX INJ 150 ML IV SCH (16:58)
--- NOTE | 2017-07-14 18:25 | HHI.PR ---
Subjective Remarks better less sob Objective Vital Signs Date Time Temp Pulse Resp B/P (MAP) Pulse Ox O2 Delivery O2 Flow Rate FiO2 07/14/17 18:00 113 07/14/17 16:00 98.3 114 16 114/65 (81) 81 07/14/17 16:00 95 07/14/17 14:00 100 07/14/17 12:15 89 Nasal Cannula 6.00 07/14/17 12:00 98.4 90 16 107/66 (80) 93 07/14/17 12:00 103 07/14/17 10:00 98 07/14/17 08:00 96 07/14/17 08:00 98.1 96 26 111/72 (85) 90 07/14/17 07:41 92 Partial Rebreather 15.00 07/14/17 07:15 90 Partial Non-Rebreather 15.00 07/14/17 06:00 91 07/14/17 04:00 87 07/14/17 04:00 97.6 87 16 97/63 (74) 90 07/14/17 02:00 89 07/14/17 00:00 97 07/14/17 00:00 97.8 97 17 98/59 (72) 93 07/13/17 22:00 82 07/13/17 20:00 97.9 92 16 107/65 (79) 91 07/13/17 20:00 92 07/13/17 19:29 93 Partial Rebreather 15.00 I/O 07/13/17 07/13/17 07/13/17 07/14/17 07/14/17 07/14/17 07:00 15:00 23:00 07:00 15:00 23:00 Intake Total 120 ml 800 ml 240 ml Output Total 425 ml 750 ml 1200 ml Balance 120 ml -425 ml 50 ml -960 ml Intake Oral 120 ml 800 ml 240 ml Output Urine Total 425 ml 750 ml 1200 ml # Voids 5 1 # Bowel Movements 0 0 Result Diagram: 07/14/17 1113 07/14/17 0441 Assessment and Plan Assessment and Plan PHYSICAL EXAMINATION HEENT: Atraumatic, normocephalic. NECK: Trachea midline. LUNGS: Decreased breath sounds bilaterally , no wheezing HEART: S1, S2. ABDOMEN: Soft, obese. EXTREMITIES: Trace edema. No cyanosis. NEUROLOGIC: Alert, oriented x 3. Moves all extremities. IMAGING STUDIES Chest x-ray that did show no acute disease. LABORATORY DATA Labs were reviewed. WBCs 5, hemoglobin is 18, hematocrit 37.9, platelets 115. ASSESSMENT AND PLAN Acute COPD exacerbation. Hypercapnic respiratory failure secondary to COPD exacerbation. Congestive heart failure. Obstructive sleep apnea. Obesity. Atrial fibrillation. better cont abx chnagfe to oral prednisone ok to leave icu may need home O2 bipap if needed Jose Guadalupe Middleton MD Jul 14, 2017 18:25
[2017-07-14] MEDS: ATORVASTATIN 20 MG TAB PO SCH (20:19)
[2017-07-15] VITALS (15 sets, daily range): BP systolic 115–147; BP diastolic 70–94; PULSE 95–114; RESP 19–42; TEMP 97.3–98.8; O2SAT 73–96
[2017-07-15] MEDS: RESP: ALBUTEROL 2.5 MG/IPRATROPIUM 0.5 MG NEB (SCH) INH ×6 (03:33→23:37)
[2017-07-15] MEDS: INSULIN NovoLIN REGULAR SUPPLEMENTAL SCALE SQ SCH ×5 (04:00→22:50)
[2017-07-15] MEDS: CHLORHEXIDINE GLUCONATE 2 % 1 PACK (2 CLOTHS) TOP SCH (04:00)
[2017-07-15] MEDS: methylPREDNISolone SOD SUCC 125 MG/2 ML VIAL IV PUSH SCH ×4 (05:48→22:59)
[2017-07-15 07:50] LABS: AUTOMATED NEUTROPHIL # 12.9 TH/MM3 (1.8-7.7); BASOPHIL % 0.1 % (0.0-2.0); HEMATOCRIT 57.6 % (39.0-51.0); LYMPH % 1.9 % (9.0-44.0); LYMPHOCYTE # 0.3 TH/MM3 (1.0-4.8); MEAN CELL VOLUME 89.9 FL (80.0-100.0); MEAN CORPUSCULAR HEMOGLOBIN 28.1 PG (27.0-34.0); MEAN CORPUSCULAR HGB CONC 31.2 % (32.0-36.0); MEAN PLATELET VOLUME 9.6 FL (7.0-11.0); MONO % 4.7 % (0.0-8.0); MONOCYTE # 0.6 TH/MM3 (0-0.9); NEUT % 93.3 % (16.0-70.0); PLATELET COUNT 115 TH/MM3 (150-450); RED CELL DISTRIBUTION WIDTH 19.8 % (11.6-17.2); WHITE BLOOD COUNT 13.8 TH/MM3 (4.0-11.0)
--- NOTE | 2017-07-15 08:12 | HHI.CCPN ---
Subjective Remarks/Hospital Course The patient is a 67-year-old male with past medical history of morbid obesity, obstructive sleep apnea, chronic atrial fibrillation on Eliquis, cardiomyopathy with EF of 25-30%, active smoker who presented to [facility] ED with a 2 months history of progressive worsening shortness of breath associated with edema of lower extremities. He denies any associated symptoms of chest pain, cough, fever, chills or any constitutional symptoms. In addition he denies any nausea, vomiting or abdominal pain. On arrival to the ER he was in respiratory distress and was subsequently placed on BiPAP. He had initial ABG on room air which showed severe hypoxemic and hypercapnic respiratory failure. A repeat ABG on BiPap 08/02 with 50% FIO2 showed a pH of 7.26, CO2 89, pAO2 77, bicarb 38 and sats of 89%. When seen in the ED the patient is awake, responds to questions appropriately. 07/14 Patient is on partial rebreather with good sats. Awake and alert. 07/15 No events overnight. Awake and alert on 6L oxygen Objective Vital Signs Date Time Temp Pulse Resp B/P (MAP) Pulse Ox O2 Delivery O2 Flow Rate FiO2 07/15/17 07:50 88 Nasal Cannula 6.00 07/15/17 06:00 106 07/15/17 04:00 98.6 37 115/88 (97) 07/13/17 08:02 60 Intake and Output 07/15/17 07/15/17 07/16/17 08:00 16:00 00:00 Intake Total 720 ml Output Total 1250 ml Balance -530 ml Result Diagram: 07/15/17 0702 07/14/17 0441 Other Results Laboratory Tests Test 07/14/17 08:40 07/14/17 11:13 07/15/17 07:02 07/15/17 07:07 Blood Gas Puncture Site RT RADIAL Blood Gas Patient Temperature 98.6 Blood Gas HCO3 40 mmol/L Blood Gas Base Excess 13.0 mmol/L Blood Gas Oxygen Saturation 89 % Arterial Blood pH 7.30 Arterial Blood Partial Pressure CO2 84 mmHg Arterial Blood Partial Pressure O2 66 mmHg Arterial Blood Oxygen Content 22.1 Vol % Arterial Blood Carboxyhemoglobin 1.5 % Arterial Blood Methemoglobin 0.9 % Blood Gas Hemoglobin 17.7 G/DL Oxygen Delivery Device PNRBR Blood Gas Liter Flow 15 L/M White Blood Count 14.2 TH/MM3 13.8 TH/MM3 Red Blood Count 6.02 MIL/MM3 6.40 MIL/MM3 Hemoglobin 17.5 GM/DL 18.0 GM/DL Hematocrit 54.7 % 57.6 % Mean Corpuscular Volume 90.8 FL 89.9 FL Mean Corpuscular Hemoglobin 29.1 PG 28.1 PG Mean Corpuscular Hemoglobin Concent 32.0 % 31.2 % Red Cell Distribution Width 19.8 % 19.8 % Platelet Count 138 TH/MM3 115 TH/MM3 Mean Platelet Volume 11.0 FL 9.6 FL Neutrophils (%) (Auto) 93.3 % Lymphocytes (%) (Auto) 1.9 % Monocytes (%) (Auto) 4.7 % Eosinophils (%) (Auto) 0.0 % Basophils (%) (Auto) 0.1 % Neutrophils # (Auto) 12.9 TH/MM3 Lymphocytes # (Auto) 0.3 TH/MM3 Monocytes # (Auto) 0.6 TH/MM3 Eosinophils # (Auto) 0.0 TH/MM3 Basophils # (Auto) 0.0 TH/MM3 CBC Comment DIFF FINAL Differential Comment Imaging Last Impressions Chest X-Ray 07/14/17 0600 Signed Impressions: Service Date/Time: June 02:58 - CONCLUSION: 1. Cardiomegaly with prominence of the central vessels concerning for pulmonary venous hypertension. 2. Bibasilar areas of mild consolidation or atelectasis. 3. Blunting of the left cusp and which may represent a mild left effusion. Tomas Lion MD Lower Extremity Ultrasound 07/12/17 0000 Signed Impressions: Service Date/Time: Wednesday, July 12, 2017 15:25 - CONCLUSION: Normal examination. No evidence of DVT Danny Jaramillo MD Objective Remarks GENERAL: A 67-year-old male sitting up in bed in mild respiratory distress on a NRBM. HEENT: Atraumatic, normocephalic. Pupils equal, round, reactive to light and accommodation. Extraocular muscles intact. Conjunctiva pink. Nonicteric sclerae. Oral mucosa within normal. NECK: Supple. No JVD, adenopathy or thyromegaly. Trachea midline. CARDIOVASCULAR: Tachycardiac, irregularly irregular, normal S1-S2. No murmurs, rubs or gallops noted. LUNGS: Pulmonary exam bilateral equal air entry. Overall diminished. ABDOMEN: Soft, obese, nontender, no distension. Positive bowel sounds. EXTREMITIES: No cyanosis, clubbing, 2-3+ edema. NEUROLOGIC: No focal sensory deficit. A/P Assessment and Plan IMPRESSION 1. Acute hypoxemic and hypercapnic respiratory failure. 2. COPD exacerbation. 3. Obesity hypoventilation syndrome. 4. Obstructive sleep apnea / morbid obesity. 5. Active tobacco use. 6. Nonischemic cardiomyopathy with EF of 25-30%. 7. Chronic atrial fibrillation on Eliquis. 8. Hypertension. Plan Monitor neuro status and avoid any sedatives. Pulm: Continue with oxygen and maintain sats above 92%. Bronchodilators,Solu-Medrol 60 mg IV q.6h. BIPAP PRN and nocturnally qhs. Pulmonary is following Check ABG CV: Monitor HR and BP and maintain MAP >65 mmHg. On Coreg 12.5 mg b.i.d., Entresto, Lipitor 20 mg q.h.s. and Eliquis 5 mg p.o. b.i.d. Echo showed EF 40-45%, mod pulm HTN, PAP 66mmHg Cards is following- Dr. Adkins. On Lasix 40mg BID : Monitor renal function Is and Os and electrolyte replacement as needed. GI: On PO diet, Pepcid for GI prophylaxis. ID: Continue Levaquin for COPD exacerbation and monitor for signs of infections ( fever and WBC). Heme: Monitor CBC. Endo: SSI with Accu-Cheks for glycemic control GI prophylaxis with Pepcid and DVT prophylaxis with SCDs, Eliquis 5 mg b.i.d. Doppler US LE negative for DVT Will transfer to floor and consult HEPAS Level 2 Bryan Mayberry MD Jul 15, 2017 08:12
[2017-07-15] MEDS: FUROSEMIDE 40 MG/4 ML VIAL IV PUSH SCH (08:15)
[2017-07-15] MEDS: FAMOTIDINE 20 MG/2 ML VIAL IV PUSH SCH ×2 (08:16→22:47)
[2017-07-15] MEDS: CARVEDILOL 12.5 MG TAB PO SCH ×2 (08:16→22:40)
[2017-07-15] MEDS: APIXABAN 5 MG TABLET PO SCH ×2 (08:16→22:39)
[2017-07-15] MEDS: SACUBITRIL/VALSARTAN 24 MG-26 MG TAB PO SCH (08:16)
[2017-07-15] MEDS: DOCUSATE SODIUM 50 MG/SENNA 8.6 MG TAB PO SCH ×2 (08:16→21:00)
[2017-07-15 08:18] LABS: BICARBONATE 37.2 MEQ/L (21.0-32.0); CALCIUM 8.8 MG/DL (8.5-10.1); CREATININE 1.03 MG/DL (0.60-1.30); MAGNESIUM 2.4 MG/DL (1.5-2.5); PHOSPHORUS 1.6 MG/DL (2.5-4.9)
--- NOTE | 2017-07-15 12:23 | PD.CARD.PN ---
Subjective Subjective Remarks Dyspnea nearly resolved. No CP, dizziness, palpitations, PND. Objective Medications Item Value Date Time Sacubitril/ 1 tab 07/13/17 2100 Valsartan BID/PO 07/15/17 0816 (Entresto 24-26 Mg) Furosemide 40 mg 07/13/17 1800 (Lasix Inj) BID@09,18/IV PUSH 07/15/17 0815 Apixaban 5 mg 07/12/17 2100 (Eliquis) BID/PO 07/15/17 0816 Atorvastatin 20 mg 07/12/17 2100 Calcium HS/PO 07/14/17 2019 (Lipitor) Carvedilol 12.5 mg 07/12/17 1430 (Coreg) BID/PO 07/15/17 0816 Current Medications Medications (Trade) Dose Ordered Sig/Prakash Route Start Time Stop Time Status Last Admin (Pepcid Inj) 20 mg Q12HR IV PUSH 07/12/17 14:45 07/15/17 08:16 (Duoneb Neb) 1 ampule Q4HR NEB INH 07/12/17 16:00 07/15/17 11:50 (Duoneb Neb) 1 ampule Q2HR NEB PRN INH 07/12/17 14:30 Miscellaneous Information 1 Q361D XX 07/12/17 14:30 (Chlorhexidine 2% Cloth) 3 pack Taper DAILY@04 TOP 07/13/17 04:00 07/09/18 03:59 07/15/17 04:00 (Chlorhexidine 2% Cloth) 3 pack UNSCH PRN TOP 07/12/17 14:30 (Heavenly-Colace) 1 tab BID PO 07/12/17 21:00 07/14/17 20:19 (Milk Of Magnesia Liq) 30 ml Q12H PRN PO 07/12/17 14:30 (Senokot) 17.2 mg Q12H PRN PO 07/12/17 14:30 (Dulcolax Supp) 10 mg DAILY PRN RECTAL 07/12/17 14:30 (Lactulose Liq) 30 ml DAILY PRN PO 07/12/17 14:30 (SoluMEDROL INJ) 60 mg Q6HR IV PUSH 07/12/17 18:00 07/15/17 05:48 (Eliquis) 5 mg BID PO 07/12/17 21:00 07/15/17 08:16 (Lipitor) 20 mg HS PO 07/12/17 21:00 07/14/17 20:19 (Coreg) 12.5 mg BID PO 07/12/17 14:30 07/15/17 08:16 Levofloxacin/ Dextrose 150 ml @ 100 mls/hr Q24H IV 07/12/17 16:00 07/18/17 15:59 07/14/17 16:58 (D50w (Vial) Inj) 50 ml UNSCH PRN IV PUSH 07/12/17 15:30 (Glucagon Inj) 1 mg UNSCH PRN OTHER 07/12/17 15:30 (NovoLIN R SUPPLEMENTAL SCALE) 1 Q4HR SQ 07/12/17 16:00 07/14/17 23:47 (Entresto 24-26 Mg) 1 tab BID PO 07/13/17 21:00 07/15/17 08:16 (Lasix Inj) 40 mg BID@09,18 IV PUSH 07/13/17 18:00 07/15/17 08:15 Vital Signs / I&O Vital Signs Date Time Temp Pulse Resp B/P (MAP) Pulse Ox O2 Delivery O2 Flow Rate FiO2 07/15/17 10:00 104 07/15/17 08:00 101 07/15/17 08:00 93 Nasal Cannula 6.00 07/15/17 08:00 97.3 101 42 147/77 (100) 73 07/15/17 07:50 88 Nasal Cannula 6.00 07/15/17 06:00 106 07/15/17 04:00 98.6 109 37 115/88 (97) 82 07/15/17 04:00 109 07/15/17 02:00 100 07/15/17 00:10 98.8 109 26 121/70 (87) 87 07/15/17 00:00 99 07/14/17 22:00 102 07/14/17 20:00 121 07/14/17 20:00 98.6 121 57 114/77 (89) 85 07/14/17 19:33 90 Nasal Cannula 6.00 07/14/17 19:00 88 Nasal Cannula 6.00 07/14/17 18:00 113 07/14/17 16:00 98.3 114 16 114/65 (81) 81 07/14/17 16:00 95 1/18/18 14:00 100 I/O 07/14/17 07/14/17 07/14/17 07/15/17 07/15/17 07/15/17 07:00 15:00 23:00 07:00 15:00 23:00 Intake Total 240 ml 870 ml 720 ml Output Total 1200 ml 2500 ml 1250 ml Balance -960 ml -1630 ml -530 ml Intake Oral 240 ml 720 ml 720 ml IV Total 150 ml Output Urine Total 1200 ml 2500 ml 1250 ml # Bowel Movements 0 Physical Exam GENERAL: Well developed, well nourished. No acute distress. HEENT: Jugular venous pressure is normal. CHEST: Lungs clear to auscultation bilaterally. Unlabored respiratory effort. CARDIAC: Irregular rate and rhythm without S3 or murmur. ABDOMEN: Soft, nontender, no hepatosplenomegaly. Bowel sounds present. EXTREMITIES: No clubbing, cyanosis. Chronic venous stasis changes. 1+ pretibial edema. Laboratory Laboratory Tests Test 07/15/17 07:02 07/15/17 07:07 07/15/17 11:23 White Blood Count 13.8 TH/MM3 Red Blood Count 6.40 MIL/MM3 Hemoglobin 18.0 GM/DL Hematocrit 57.6 % Mean Corpuscular Volume 89.9 FL Mean Corpuscular Hemoglobin 28.1 PG Mean Corpuscular Hemoglobin Concent 31.2 % Red Cell Distribution Width 19.8 % Platelet Count 115 TH/MM3 Mean Platelet Volume 9.6 FL Neutrophils (%) (Auto) 93.3 % Lymphocytes (%) (Auto) 1.9 % Monocytes (%) (Auto) 4.7 % Eosinophils (%) (Auto) 0.0 % Basophils (%) (Auto) 0.1 % Neutrophils # (Auto) 12.9 TH/MM3 Lymphocytes # (Auto) 0.3 TH/MM3 Monocytes # (Auto) 0.6 TH/MM3 Eosinophils # (Auto) 0.0 TH/MM3 Basophils # (Auto) 0.0 TH/MM3 CBC Comment DIFF FINAL Differential Comment Blood Urea Nitrogen 24 MG/DL Creatinine 1.03 MG/DL Random Glucose 139 MG/DL Calcium Level 8.8 MG/DL Phosphorus Level 1.6 MG/DL Magnesium Level 2.4 MG/DL Sodium Level 135 MEQ/L Potassium Level 3.8 MEQ/L Chloride Level 93 MEQ/L Carbon Dioxide Level 37.2 MEQ/L Anion Gap 5 MEQ/L Estimat Glomerular Filtration Rate 72 ML/MIN Blood Gas Puncture Site RT RADIAL Blood Gas Patient Temperature 98.6 Blood Gas HCO3 41 mmol/L Blood Gas Base Excess 15.1 mmol/L Blood Gas Oxygen Saturation 84 % Arterial Blood pH 7.41 Arterial Blood Partial Pressure CO2 65 mmHg Arterial Blood Partial Pressure O2 52 mmHg Arterial Blood Oxygen Content 21.5 Vol % Arterial Blood Carboxyhemoglobin 1.5 % Arterial Blood Methemoglobin 1.0 % Blood Gas Hemoglobin 18.2 G/DL Oxygen Delivery Device NASAL CANNULA Blood Gas Liter Flow 6 L/M Blood Gas Inspired Oxygen 45 % Assessment and Plan Problem List: (1) Non-ischemic cardiomyopathy ICD Codes: I42.8 - Other cardiomyopathies Status: Chronic Plan: Doing well. Very good diuresis since admission. Suspect most of respiratory insufficiency recently due to COPD. EF on echo this admission appears closer to 50% by my review. Suspect pedal edema mostly related to chronic deep venous insufficiency, worsened by amlodipine use. REC can stop Entresto as his EF is now in low normal range, but replace it with NOBLE-I continue carvedilol change to oral furosemide; his pedal edema will be very difficult to fully mobilize, rec consider Higinio douglass, consider referral to venous specialist in the future OK for discharge from cardiac standpoint today or tomorrow (2) Chronic atrial fibrillation ICD Codes: I48.2 - Chronic atrial fibrillation Status: Chronic Plan: Stable chronic atrial fibrillation. HR's mostly acceptable. Continue apixaban. (3) Hypertension ICD Codes: I10 - Essential (primary) hypertension Status: Chronic Plan: Fluctuating BP's. Rec outpatient monitoring, treatment changes by PCP as outpatient. Code Status full code Discussed Condition With patient Problem Qualifiers (1) Hypertension: Qualified Codes: I10 - Essential (primary) hypertension Jonel Adkins MD Jul 15, 2017 12:23
[2017-07-15] MEDS: LEVOFLOXACIN 750 MG PREMIX INJ 150 ML IV SCH (16:05)
[2017-07-15] MEDS: ENALAPRIL MALEATE 5 MG TAB PO SCH (22:41)
[2017-07-15] MEDS: ATORVASTATIN 20 MG TAB PO SCH (22:41)
[2017-07-16] VITALS (8 sets, daily range): BP systolic 114–143; BP diastolic 67–76; PULSE 84–110; RESP 18–20; TEMP 97.8–98.2; O2SAT 90–94
[2017-07-16] MEDS: INSULIN NovoLIN REGULAR SUPPLEMENTAL SCALE SQ SCH ×5 (04:12→16:06)
[2017-07-16] MEDS: RESP: ALBUTEROL 2.5 MG/IPRATROPIUM 0.5 MG NEB (SCH) INH ×4 (04:14→11:26)
[2017-07-16] MEDS: CHLORHEXIDINE GLUCONATE 2 % 1 PACK (2 CLOTHS) TOP SCH (04:14)
[2017-07-16 07:54] LABS: AUTOMATED NEUTROPHIL # 9.8 TH/MM3 (1.8-7.7); BASOPHIL % 0.1 % (0.0-2.0); HEMATOCRIT 56.6 % (39.0-51.0); HEMOGLOBIN 17.8 GM/DL (13.0-17.0); LYMPH % 3.2 % (9.0-44.0); LYMPHOCYTE # 0.4 TH/MM3 (1.0-4.8); MEAN CELL VOLUME 89.9 FL (80.0-100.0); MEAN CORPUSCULAR HEMOGLOBIN 28.3 PG (27.0-34.0); MEAN CORPUSCULAR HGB CONC 31.5 % (32.0-36.0); MEAN PLATELET VOLUME 9.2 FL (7.0-11.0); MONOCYTE # 0.9 TH/MM3 (0-0.9); NEUT % 88.7 % (16.0-70.0); PLATELET COUNT 109 TH/MM3 (150-450); RED BLOOD COUNT 6.29 MIL/MM3 (4.50-5.90); RED CELL DISTRIBUTION WIDTH 19.7 % (11.6-17.2); WHITE BLOOD COUNT 11.1 TH/MM3 (4.0-11.0)
[2017-07-16] MEDS: CARVEDILOL 12.5 MG TAB PO SCH (08:05)
[2017-07-16] MEDS: DOCUSATE SODIUM 50 MG/SENNA 8.6 MG TAB PO SCH (08:05)
[2017-07-16] MEDS: APIXABAN 5 MG TABLET PO SCH (08:06)
[2017-07-16] MEDS: ENALAPRIL MALEATE 5 MG TAB PO SCH (08:06)
[2017-07-16] MEDS: FAMOTIDINE 20 MG/2 ML VIAL IV PUSH SCH (08:06)
[2017-07-16 08:51] LABS: BICARBONATE 39.6 MEQ/L (21.0-32.0); CREATININE 1.03 MG/DL (0.60-1.30)
[2017-07-16] MEDS ORDERED: FUROSEMIDE 40 MG TAB PO SCH (09:00)
--- NOTE | 2017-07-16 10:45 | HHI.DS ---
Discharge Summary Admission Date Jul 12, 2017 at 14:27 Discharge Date: Jul 16, 2017 Admitting Diagnosis hypoxemic resp failure (1) Non-ischemic cardiomyopathy ICD Code: I42.8 - Other cardiomyopathies Status: Chronic (2) COPD (chronic obstructive pulmonary disease) ICD Code: J44.9 - Chronic obstructive pulmonary disease, unspecified (3) Hypertension ICD Code: I10 - Essential (primary) hypertension Status: Chronic (4) Acute hypoxemic respiratory failure ICD Code: J96.01 - Acute respiratory failure with hypoxia Status: Acute (5) HTN (hypertension) ICD Code: I10 - Essential (primary) hypertension Status: Acute (6) CHF (congestive heart failure) ICD Code: I50.9 - Heart failure, unspecified Status: Acute Procedures None Brief History - From Admission History of present illness from the admitting physician. 67-year-old male with past medical history of morbid obesity, obstructive sleep apnea, chronic atrial fibrillation on Eliquis, cardiomyopathy with EF of 25-30% , active smoker who presented to [facility] ED with a 2 months history of progressive worsening shortness of breath associated with edema of lower extremities. He denies any associated symptoms of chest pain, cough, fever, chills or any constitutional symptoms. In addition he denies any nausea, vomiting or abdominal pain. On arrival to the ER he was in respiratory distress and was subsequently placed on BiPAP. He had initial ABG on room air which showed severe hypoxemic and hypercapnic respiratory failure. A repeat ABG on BiPap 08/02 with 50% FIO2 showed a pH of 7.26, CO2 89, pAO2 77, bicarb 38 and sats of 89%. When seen in the ED the patient is awake, responds to questions appropriately. CBC/BMP: 07/16/17 0727 07/16/17 0727 Significant Findings Laboratory Tests Test 07/14/17 04:41 07/14/17 08:40 07/14/17 11:13 07/15/17 07:02 Blood Urea Nitrogen 31 MG/DL (7-18) Random Glucose 120 MG/DL (74-106) Calcium Level 8.3 MG/DL (8.5-10.1) Chloride Level 94 MEQ/L (98-107) Carbon Dioxide Level 40.6 MEQ/L (21.0-32.0) Anion Gap 3 MEQ/L (5-15) Estimat Glomerular Filtration Rate 69 ML/MIN (>89) Blood Gas HCO3 40 mmol/L (22-26) Blood Gas Base Excess 13.0 mmol/L (-2-2) Blood Gas Oxygen Saturation 89 % (90-100) Arterial Blood pH 7.30 (7.380-7.420) Arterial Blood Partial Pressure CO2 84 mmHg (38-42) Arterial Blood Oxygen Content 22.1 Vol % (12.0-20.0) Blood Gas Hemoglobin 17.7 G/DL (12.0-16.0) White Blood Count 14.2 TH/MM3 (4.0-11.0) 13.8 TH/MM3 (4.0-11.0) Red Blood Count 6.02 MIL/MM3 (4.50-5.90) 6.40 MIL/MM3 (4.50-5.90) Hemoglobin 17.5 GM/DL (13.0-17.0) 18.0 GM/DL (13.0-17.0) Hematocrit 54.7 % (39.0-51.0) 57.6 % (39.0-51.0) Red Cell Distribution Width 19.8 % (11.6-17.2) 19.8 % (11.6-17.2) Platelet Count 138 TH/MM3 (150-450) 115 TH/MM3 (150-450) Mean Corpuscular Hemoglobin Concent 31.2 % (32.0-36.0) Neutrophils (%) (Auto) 93.3 % (16.0-70.0) Lymphocytes (%) (Auto) 1.9 % (9.0-44.0) Neutrophils # (Auto) 12.9 TH/MM3 (1.8-7.7) Lymphocytes # (Auto) 0.3 TH/MM3 (1.0-4.8) Test 07/15/17 07:07 07/15/17 11:23 07/16/17 07:27 Blood Urea Nitrogen 24 MG/DL (7-18) 23 MG/DL (7-18) Random Glucose 139 MG/DL (74-106) 147 MG/DL (74-106) Phosphorus Level 1.6 MG/DL (2.5-4.9) Sodium Level 135 MEQ/L (136-145) Chloride Level 93 MEQ/L (98-107) 96 MEQ/L (98-107) Carbon Dioxide Level 37.2 MEQ/L (21.0-32.0) 39.6 MEQ/L (21.0-32.0) Estimat Glomerular Filtration Rate 72 ML/MIN (>89) 72 ML/MIN (>89) Blood Gas HCO3 41 mmol/L (22-26) Blood Gas Base Excess 15.1 mmol/L (-2-2) Blood Gas Oxygen Saturation 84 % (90-100) Arterial Blood Partial Pressure CO2 65 mmHg (38-42) Arterial Blood Partial Pressure O2 52 mmHg (61-120) Arterial Blood Oxygen Content 21.5 Vol % (12.0-20.0) Blood Gas Hemoglobin 18.2 G/DL (12.0-16.0) White Blood Count 11.1 TH/MM3 (4.0-11.0) Red Blood Count 6.29 MIL/MM3 (4.50-5.90) Hemoglobin 17.8 GM/DL (13.0-17.0) Hematocrit 56.6 % (39.0-51.0) Mean Corpuscular Hemoglobin Concent 31.5 % (32.0-36.0) Red Cell Distribution Width 19.7 % (11.6-17.2) Platelet Count 109 TH/MM3 (150-450) Neutrophils (%) (Auto) 88.7 % (16.0-70.0) Lymphocytes (%) (Auto) 3.2 % (9.0-44.0) Neutrophils # (Auto) 9.8 TH/MM3 (1.8-7.7) Lymphocytes # (Auto) 0.4 TH/MM3 (1.0-4.8) Anion Gap 4 MEQ/L (5-15) Imaging Last Impressions Chest X-Ray 07/14/17 0600 Signed Impressions: Service Date/Time: June 02:58 - CONCLUSION: 1. Cardiomegaly with prominence of the central vessels concerning for pulmonary venous hypertension. 2. Bibasilar areas of mild consolidation or atelectasis. 3. Blunting of the left cusp and which may represent a mild left effusion. Tomas Lion MD Lower Extremity Ultrasound 07/12/17 0000 Signed Impressions: Service Date/Time: Wednesday, July 12, 2017 15:25 - CONCLUSION: Normal examination. No evidence of DVT Danny Jaramillo MD PE at Discharge GENERAL: This is a well-nourished, well-developed patient, in no apparent distress. CARDIOVASCULAR: Normal rate and regular rhythm without murmurs, gallops, or rubs. RESPIRATORY: Good respiratory efforts. Significantly diminished breath sounds diffusely.. GASTROINTESTINAL: Abdomen soft, non-tender, non-distended. Normal active bowel sounds MUSCULOSKELETAL: Extremities with venous stasis changes. No significant edema. NEURO: Alert & Oriented x4 to person, place, time, situation. Moves all ext x4 PSYCH: Appropriate mood and affect. Pt update on day of discharge Patient reports is feeling okay. Requiring oxygen. He wants to go home. Hospital Course 67-year-old male admitted in acute hypoxemic and hypercapnic respiratory failure secondary to combination of COPD exacerbation, obesity hypoventilation syndrome. Patient also has history of nonischemic cardiomyopathy. Patient was admitted and treated with IV Solu-Medrol, bronchodilators, antibiotics, and diuretics. He was followed by pulmonology and cardiology. Echocardiogram revealed improvement of his LVEF. His heart medications were adjusted. An [place] discontinued. He was restarted on an NOBLE inhibitor and oral Lasix. The patient respiratory status continued to improve. Although he continues to require oxygen. He is discharged in stable condition with home oxygen. Patient is advised to follow-up outpatient with cardiology and pulmonology. Medications per med rec. Pt Condition on Discharge: Good Discharge Disposition: Discharge Home Discharge Time: > 30 minutes Discharge Instructions Follow up Referrals: Cardiology Pulmonology New Medications: Levofloxacin (Levaquin) 750 Mg Tablet 750 MG PO DAILY for Infection, #3 TAB 0 Refills Oxygen (O2) (Oxygen (O2)) Device LITER KORINA.CANULA CONTINUOUS for Prevent Hypoxemia, #2 Oxygen Concentrator Portable Gaseous 2 L/min via Nasal Canula Continuous For 99 months Prednisone (21) 10 mg tab Dose Pack (Prednisone (21) 10 mg tab Dose Pack) 10 Mg Pack 10 MG PO DIRECTED for Inflammation, #1 DSPK 0 Refills Enalapril (Enalapril) 5 Mg Tab 5 MG PO BID, #60 TAB Changed Medications: Carvedilol (Carvedilol) 25 Mg Tab 25 MG PO BID, #60 TAB 0 Refills (Changed from: Carvedilol 12.5 Mg Tab 12.5 Mg PO BID #60 TAB Ref 0) Furosemide (Furosemide) 40 Mg Tab 40 MG PO DAILY, #30 TAB 0 Refills (Changed from: BID; 60) Continued Medications: Apixaban (Eliquis) 5 Mg Tab 5 MG PO BID for Blood Clot Prevention, #60 TAB 0 Refills Atorvastatin (Atorvastatin) 20 Mg Tab 20 MG PO HS for Cholesterol Management, #30 TAB 0 Refills Potassium Chloride ER (Potassium Chloride ER) 20 Meq Tab 20 MEQ PO DAILY for Electrolyte Replacement, #30 TAB 0 Refills Discontinued Medications: Amlodipine (Amlodipine) 5 Mg Tab 5 MG PO DAILY for Blood Pressure Management, #30 TAB 0 Refills Gómez Lovelace MD Jul 16, 2017 10:45
[2017-07-16] MEDS: methylPREDNISolone SOD SUCC 125 MG/2 ML VIAL IV PUSH SCH (11:20)
[2017-07-16] MEDS ORDERED: PRED10PA PO (11:27)
[2017-07-16] MEDS ORDERED: LEVA750T9 PO (11:27)
[2017-07-16] MEDS ORDERED: CARV25TA PO (11:27)
[2017-07-16] MEDS ORDERED: FURO40TA PO (11:27)
[2017-07-16] MEDS ORDERED: ENAL5TAB PO (11:27)
--- NOTE | 2017-07-16 13:32 | HHI.PR ---
Subjective Remarks better ready to go home Objective Vital Signs Date Time Temp Pulse Resp B/P (MAP) Pulse Ox O2 Delivery O2 Flow Rate FiO2 07/16/17 11:37 97.8 87 20 125/68 (87) 90 07/16/17 11:27 6.00 07/16/17 09:26 Nasal Cannula 4.00 07/16/17 09:21 86 07/16/17 09:03 92 Nasal Cannula 5.00 07/16/17 07:50 98.2 85 20 114/76 (89) 90 07/16/17 05:15 98.0 100 18 120/74 (89) 90 07/16/17 04:00 88 07/16/17 00:00 98.1 110 18 143/67 (92) 90 07/15/17 23:52 107 07/15/17 20:00 98.5 112 19 142/94 (110) 90 07/15/17 19:41 89 Nasal Cannula 6.00 07/15/17 18:00 114 07/15/17 16:00 99 07/15/17 16:00 97.6 99 29 126/79 (95) 86 07/15/17 14:00 108 I/O 07/15/17 07/15/17 07/15/17 07/16/17 07/16/17 07/16/17 07:00 15:00 23:00 07:00 15:00 23:00 Intake Total 720 ml 1000 ml 900 ml Output Total 1250 ml 1200 ml Balance -530 ml -200 ml 900 ml Intake Oral 720 ml 1000 ml 900 ml Output Urine Total 1250 ml 1200 ml # Voids 3 # Bowel Movements 2 0 Result Diagram: 07/16/17 0727 07/16/17 0727 Assessment and Plan Assessment and Plan PHYSICAL EXAMINATION HEENT: Atraumatic, normocephalic. NECK: Trachea midline. LUNGS: clear HEART: S1, S2. ABDOMEN: Soft, obese. EXTREMITIES: Trace edema. No cyanosis. NEUROLOGIC: Alert, oriented x 3. Moves all extremities. IMAGING STUDIES Chest x-ray that did show no acute disease. LABORATORY DATA Labs were reviewed. WBCs 5, hemoglobin is 18, hematocrit 37.9, platelets 115. ASSESSMENT AND PLAN Acute COPD exacerbation. Hypercapnic respiratory failure secondary to COPD exacerbation. Congestive heart failure. Obstructive sleep apnea. Obesity. Atrial fibrillation. better cont abx ok to go home will need outpxt f/u I will sign of.. Jose Guadalupe Middleton MD Jul 16, 2017 13:32
[2017-07-16] MEDS ORDERED: OXYGENDME NAS.CANULA (13:37)
--- NOTE | 2017-07-16 13:39 | HHI.DCPOC ---
Discharge Care Plan Diagnosis: (1) Non-ischemic cardiomyopathy (2) Acute hypoxemic respiratory failure (3) COPD (chronic obstructive pulmonary disease) (4) Chronic atrial fibrillation (5) Hypertension Goals to Promote Your Health * To prevent worsening of your condition and complications * To maintain your health at the optimal level Directions to Meet Your Goals Take your medications as prescribed Follow your dietary instruction Follow activity as directed Keep your appointments as scheduled Take your immunizations and boosters as scheduled If your symptoms worsen call your PCP, if no PCP go to Urgent Care Center or Emergency Room Smoking is Dangerous to Your Health. Avoid second hand smoke Call the 24-hour hour crisis hotline for domestic abuse at Gómez Lovelace MD Jul 16, 2017 13:39
== END 2017-07-16 17:46 | disposition home or self-care (01) | DRG 189 ==
LOC: NEPE 09:24 → NEDA 14:27 → HIMW 16:30 → N05A 07-15 19:20
PROVIDERS: ADMIT Family Medicine; ATTEND Family Medicine
PROC: 5A09357 Assistance with Respiratory Ventilation, Less than 24 Consecutive Hours, Continuous Positive Airway Pressure (ICD-10-PCS; principal; 2017-07-12)
DX: J96.01 Acute respiratory failure with hypoxia (principal); J96.02 Acute respiratory failure with hypercapnia; E87.2 Acidosis; I42.8 Other cardiomyopathies; Z68.41 Body mass index [BMI] 40.0-44.9, adult; I11.0 Hypertensive heart disease with heart failure; I50.9 Heart failure, unspecified; E66.2 Morbid (severe) obesity with alveolar hypoventilation; J44.1 Chronic obstructive pulmonary disease with (acute) exacerbation; I48.2 Chronic atrial fibrillation; G47.33 Obstructive sleep apnea (adult) (pediatric); F17.210 Nicotine dependence, cigarettes, uncomplicated; Z79.02 Long term (current) use of antithrombotics/antiplatelets; I87.2 Venous insufficiency (chronic) (peripheral); Z23 Encounter for immunization
CPT/HCPCS: 36600; 71045; 80048; 80053; 82550; 82805; 82948; 83735; 83880; 84100; 84484; 85025; 85027; 85610; 85730; 87641; 90732; 93005; 93306; 93970; 94002; 94003; 94618; 94640; 94664; 96374; J1120; J1940; J1956; J2930